=== PATIENT | male | born 1975 | race Two or more races ===

== ENCOUNTER 2020-09-03 10:32 | Emergency (ER) | payer OTHER, SELFPAY ==
[2020-09-03 10:44] VITALS: BP 143/81; PULSE 84; RESP 17; TEMP 36.8; O2SAT 98; BMI 31.0
--- NOTE | 2020-09-03 11:35 | ED.ALLEREA ---
HPI - Allergic Reaction General Chief complaint: Allergic Reaction Stated complaint: allergic Reaction Time Seen by Provider: 09/03/20 10:59 Source: patient Mode of arrival: ambulatory History of Present Illness HPI narrative: 45-year-old male a past medical history of sleep apnea, seasonal allergies, presenting to the ED complaining of allergic reaction to suspected Singulair and or Prednisone s/p taking yesterday. Admits was seen at [place] [facility] yesterday, prescribed these medications in about 4 hours later had diffuse pruritus/rash, and throat swelling. Denies SOB, wheezing, rash at present, other new exposures/known allergens MD complaint: allergic reaction and hives Related Data Home Medications Medication Instructions Recorded Confirmed varenicline 1 mg tablet 1 mg PO BID 09/02/20 09/02/20 Previous Rx's Medication Instructions Recorded montelukast 10 mg tablet 10 mg PO DAILY #30 tab 09/02/20 prednisone 10 mg tablet 10 mg PO .COMPLEX #45 tab 09/02/20 cetirizine [Zyrtec] 10 mg PO DAILY #14 tab 09/03/20 diphenhydramine HCl [Benadryl] 25 mg PO Q6H PRN #20 cap 09/03/20 Allergies Allergy/AdvReac Type Severity Reaction Status Date / Time No Known Allergies Allergy Unverified 12/14/19 17:13 seasonal allergies Allergy Unknown Itching Uncoded 09/03/20 10:47 Review of Systems Review of Systems: Constitutional: No Fever, No Chills, No Night Sweats, No Fatigue, No Malaise ENT/Mouth: No Nasal Congestion, No Sinus Pain, + Hoarseness, + sore throat, No Rhinorrhea, No Swallowing Difficulty Eyes: No Eye Pain, No Swelling, No Redness, No Vision Changes Cardiovascular: No Chest Pain, No SOB, No Edema Respiratory: No Cough, No Sputum, No Wheezing, No Dyspnea Musculoskeletal: No joint pain, No Myalgias, No Joint Swelling Skin: No Skin Lesions, + rash Neuro: No Weakness, No Numbness, No Headache Yes all other systems are reviewed and are negative [facility] Past Medical History Attestation statement: The following information was validated with the patient. Medical History (Updated 09/03/20 @ 12:55 by CHOCO Alanis) Sleep apnea Social History Social History Advance Directives: No Advance Directives Information Provided: No Physical Exam Vital Signs: Vital Signs: Last Vital Signs Temp 98.3 F 09/03/20 10:44 Pulse 84 09/03/20 10:44 Resp 17 09/03/20 10:44 BP 143/81 H 09/03/20 10:44 Pulse Ox 98 09/03/20 10:44 Body Mass Index 31.0 Const: General: cooperative and healthy appearing Orientation/consciousness: patient oriented x3 Limitations: no limitations HENMT: Other: Talking in complete sentences, in no respiratory distress Head: Yes normal to inspection and Yes atraumatic Ears: hearing grossly normal bilaterally General nose exam: Normal external nose present Face and sinus: Yes normal facial exam Mouth: Normal oral and palatal mucosa present Throat: Yes uvula midline, Yes abnormal tonsil (Bilateral tonsillar mild erythema/swelling), No peritonsillar mass, No uvula laterally displaced and No uvular edema Eyes: General: appearance normal, both eyes and all related structures EOM: EOMs intact bilaterally Neck: Neck: Yes normal visual inspection and Yes no meningeal signs Resp: Effort & Inspection: normal respiratory effort, no grunting, not labored and no stridor Auscultation: clear to auscultation bilaterally Cardio: Rate: regular rate Heart sounds: S1 normal heart sound present and S2 normal heart sound present GI: Inspection: Yes normal to inspection Skin: Other: No rash noted at this time Rashes: no rashes Wounds: no wounds Neuro: General: patient oriented x3 and no meningeal signs Gait exam (Neuro): Normal gait present Extrem: General: Yes normal to inspection Course Course Course Narrative: -1254-- Patient reports symptomatic improvement after medications given in the ED. Is talking in complete sentences, vital signs stable, oropharynx WNL. worrisome signs and symptoms and strict return precautions discussed with patient, he verbalized understanding and feels safe for discharge home. Will not take Singulair or prednisone. MDM - Allergic Reaction MDM Narrative Medical decision making narrative: 45-year-old male a past medical history of sleep apnea, seasonal allergies, presenting to the ED complaining of allergic reaction to suspected Singulair and or Prednisone s/p taking yesterday. On exam vital signs stable, NAD/nontoxic, talking in complete sentences, no respiratory distress, lungs CTA, bilateral mild tonsillar erythema/swelling, uvula midline without edema. Concern for allergic reaction vs strep pharyngitis vs viral syndrome. Plan: Decadron p.o., Benadryl, Pepcid, observe and reassess Lab Data Labs: Lab Results 09/03/20 Range/Units 11:19 S. pyogenes GrpA LJ Negative (Negative) Discharge Plan Discharge Clinical Impression: Allergic reaction Patient Disposition: Home, Self-Care Instructions: Allergies (ED) Additional Instructions: Do not take previously prescribed Singulair or prednisone Start taking a daily allergy medication like Zyrtec in the morning if not making drowsy. In addition Take Benadryl. 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
[2020-09-03] MEDS: Famotidine 20 MG TABLET PO (11:37)
[2020-09-03] MEDS: diphenhydrAMINE HCL 25 MG TABLET PO (11:37)
[2020-09-03] MEDS: dexAMETHasone 2 MG TABLET 10 MG PO (11:37)
[2020-09-03 11:40] LABS: Strep A Nucleic Acid Negative (Negative)
== END 2020-09-03 13:10 | disposition home or self-care (01) ==
PROVIDERS: Physician Assistant; Emergency Provider Emergency Medicine; PCP Internal Medicine
DX: T78.40XA Allergy, unspecified, initial encounter (principal); L50.9 Urticaria, unspecified; X58.XXXA Exposure to other specified factors, initial encounter; J02.9 Acute pharyngitis, unspecified
CPT/HCPCS: 36415; 87651; 99283; J8540; Q0163

== ENCOUNTER 2020-09-17 09:09 | Outpatient (REF) | payer OTHER, SELFPAY ==
[2020-09-17 10:18] LABS: MANUAL DIFF FLAG NO
[2020-09-17 10:40] LABS: Basophils Percent Auto 0.3 % (0-2); Eosinophils Absolute Auto 0.3 X10*3/uL (0.0-0.4); Eosinophils Percent Auto 3.3 % (0-4); Hematocrit 44.6 % (42-52); Hemoglobin 14.7 g/dl (14.0-18.0); Imm Gran Abs Auto 0.04 X10*3/uL (0.00-0.03); Imm Gran Pct Auto 0.5 % (0.0-0.4); Mean Corpuscular Hemoglobin 28.8 pg (27.0-33.0); Mean Corpuscular Volume 87.3 fL (80-98); Mean Platelet Volume 9.7 fL (9.4-12.4); Monocytes Absolute Auto 0.9 X10*3/uL (0.1-1.2); Monocytes Percent Auto 9.7 % (2-11); Neutrophils Absolute Auto 5.7 X10*3/uL (2.0-8.3); Neutrophils Percent Auto 64.2 % (45-73); Platelet Count 353 X10*3/uL (160-400); Red Blood Count 5.11 X10*6/uL (4.60-5.80); Red Cell Distribution Width 13.2 % (11.0-16.0); White Blood Count 8.9 X10*3/uL (4.8-10.8)
[2020-09-17 10:43] LABS: Alanine Aminotransferase 25 U/L (0-40); Albumin Level 4.2 g/dL (3.5-5.0); Alkaline Phosphatase 86 U/L (39-117); Anion Gap 11 (12-20); Aspartate Amino Transferase 23 U/L (5-37); Bilirubin Total 0.4 mg/dL (0.0-1.0); Blood Urea Nitrogen 20 mg/dL (9-16); Calcium 9.5 mg/dL (8.4-10.2); Carbon Dioxide 25 mmol/L (22-29); Chloride 107 mmol/L (96-108); Cholesterol 174 mg/dL; Estimated Glomerular Filt Rate > 60; Glucose Fasting 82 mg/dL (60-99); HDL Cholesterol 41 mg/dL; LDL Cholesterol Calculated 89 mg/dl; Potassium 4.8 mmol/L (3.3-5.1); Sodium 138 mmol/L (135-145); Total Protein 7.3 g/dL (6.5-8.0); Triglycerides 222 mg/dL
[2020-09-17 11:06] LABS: Thyroid Stimulating Hormone 0.49 uIU/mL (0.32-4.0)
[2020-09-22 13:02] LABS: Vitamin D 25-OH, D2 <4 ng/mL; Vitamin D 25-OH, D3 21 ng/mL; Vitamin D 25-OH, Total 21 ng/mL (30-100)
== END 2020-09-17 09:10 | disposition home or self-care (01) ==
LOC: HO.LAB 09:09
PROVIDERS: PCP Internal Medicine; Visit Provider Internal Medicine
DX: D64.9 Anemia, unspecified (principal); E66.9 Obesity, unspecified; E78.5 Hyperlipidemia, unspecified; E55.9 Vitamin D deficiency, unspecified
CPT/HCPCS: 36415; 80053; 80061; 82306; 84443; 85025

== ENCOUNTER → 2020-10-02 08:50 | Outpatient (BNVA) | payer OTHER, SELFPAY | PROVIDERS: Visit Provider Orthopaedic Surgery | DX: M65.312 Trigger thumb, left thumb (principal); M65.311 Trigger thumb, right thumb; F17.210 Nicotine dependence, cigarettes, uncomplicated; Z91.09 Other allergy status, other than to drugs and biological substances; Z88.8 Allergy status to other drugs, medicaments and biological substances | CPT/HCPCS: 20550; J1100 ==

== ENCOUNTER 2021-02-17 08:26 | Outpatient (REF) | payer OTHER, SELFPAY ==
--- NOTE | ~2021-02-17 | US_ITS ---
EXAMINATION: US ABDOMEN LIMITED CLINICAL INFORMATION: Ventral hernia without obstruction or gangrene. COMPARISON: None TECHNIQUE: Real-time imaging of the midline abdomen superior to the umbilicus as indicated by the patient. FINDINGS: There is supraumbilical midline ventral hernia containing fat and likely fluid. The rent measures approximately 0.5 x 0.7 cm. Fluid collection measures 1.3 x 0.7 x 0.20 cm. US/US abdomen limited IMPRESSION: Supraumbilical midline ventral hernia containing fat and fluid.
== END 2021-02-17 08:27 | disposition home or self-care (01) ==
LOC: HO.US 08:26
PROVIDERS: PCP Internal Medicine; Visit Provider Internal Medicine
DX: K43.9 Ventral hernia without obstruction or gangrene (principal)
CPT/HCPCS: 76705

== ENCOUNTER → 2021-03-26 15:07 | Outpatient (BNVA) | payer OTHER, SELFPAY | PROVIDERS: PCP Internal Medicine; Referring Provider Internal Medicine; Visit Provider Surgery ==

== ENCOUNTER 2021-04-25 10:03 | Day surgery (SDC) | payer OTHER, SELFPAY ==
--- NOTE | 2021-04-23 12:37 | P.CONAN_ITS ---
Documented by User: Sonam Brown NP 04/23/21 12:38 HPI - Anesthesia Eval Consult details Narrative: 46yo M for Supraumbilical Hernia Repair PMFSH Active Problems Active Problems: All Active Problems (Updated 02/17/21 @ 19:27 by Meghan Ackerman MD) Supraumbilical hernia (Acute) Hypovitaminosis D (Acute) Hypertriglyceridemia (Acute) Ventral hernia (Acute) Face lesion (Acute) Trigger finger of left thumb (Acute) Medication reaction (Acute) Trigger finger of right thumb (Acute) Sleep apnea (Acute) Obese (Acute) Seasonal allergies (Acute) Past Medical History Medical History Face lesion Hypertriglyceridemia Hypovitaminosis D Obese Sleep apnea Supraumbilical hernia Trigger finger of right thumb Ventral hernia Family History Family History Mother No problems noted. Father No problems noted. Surgical History Surgical History No pertinent past surgical history Social History Social History Housing: Apartment Alcohol intake: current Alcohol intake frequency: a few times a week Alcohol type: beer Patient Tobacco Use Status: Current everyday Tobacco user Tobacco use type: Cigarette Cigarettes Per Day: 10 Years Smoked: 20 Smoked in Last 30 Days: Yes e-Cigarette/Vaping Use: Never Used Patient Interested in Nicotine Replacement: No Patient Given Instructions on How to Stop Smoking: Yes Date Education Initiated: 04/25/21 Second Hand Smoke Exposure: Yes Use of substances other than those prescribed or required for medical reasons: Yes Substance Use Type Other:: once/ week to sleep Are you DNR?: No Advance Directives: No Advance Directives Information Provided: Yes service: No Current occupational status: employed 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 Current occupational exposures/hazards: No Meds Allergies Allergy/AdvReac Type Severity Reaction Status Date / Time montelukast Allergy Severe Rash Verified 04/25/21 11:31 prednisone Allergy Severe Rash Verified 04/25/21 11:32 seasonal allergies Allergy Severe Itching Uncoded 04/21/21 11:01 Exam Exam Date and Time: April 23, 2021 1237 Pertinent Lab Results Pertinent Lab Results: Laboratory Tests 09/17/20 09/17/20 09:30 09:30 WBC 8.9 Hgb 14.7 Hct 44.6 Plt Count 353 Sodium 138 Potassium 4.8 Chloride 107 Carbon Dioxide 25 BUN 20 H Creatinine 1.14 Assessment and Plan Assessment Anesthesia Assessment: Chart Reviewed Documented by User: Jeanine Cobb MD 04/25/21 11:37 PMFSH Past Medical History Medical History Face lesion Hypertriglyceridemia Hypovitaminosis D Obese Sleep apnea Supraumbilical hernia Trigger finger of right thumb Ventral hernia Family History Family History Mother No problems noted. Father No problems noted. Family history of problems with anesthesia: No Surgical History Surgical History No pertinent past surgical history History of Problems with Anesthesia: No Social History Social History Housing: Apartment Alcohol intake: current Alcohol intake frequency: a few times a week Alcohol type: beer Patient Tobacco Use Status: Current everyday Tobacco user Tobacco use type: Cigarette Cigarettes Per Day: 10 Years Smoked: 20 Smoked in Last 30 Days: Yes e-Cigarette/Vaping Use: Never Used Patient Interested in Nicotine Replacement: No Patient Given Instructions on How to Stop Smoking: Yes Date Education Initiated: 04/25/21 Second Hand Smoke Exposure: Yes Use of substances other than those prescribed or required for medical reasons: Yes Substance Use Type Other:: once/ week to sleep Are you DNR?: No Advance Directives: No Advance Directives Information Provided: Yes service: No Current occupational status: employed Current occupation: rt [employer] business Current occupational exposures/hazards: No Meds Allergies Allergy/AdvReac Type Severity Reaction Status Date / Time montelukast Allergy Severe Rash Verified 04/25/21 11:31 prednisone Allergy Severe Rash Verified 04/25/21 11:32 seasonal allergies Allergy Severe Itching Uncoded 04/21/21 11:01 Exam Airway Mallampati Class: II TM Dist: >3cm Neck ROM: Full Heart: rrr Lungs: cta Assessment and Plan Assessment Anesthesia Assessment: Anesthesia Plan Discussed and Chart Reviewed Final Anesthetic Review Family History of Problems with Anesthesia: No History of Problems with Anesthesia: No NPO: Yes ASA Class: III Final Preanesthetic Review: No Changes in Pt Med Stat, Meds/Allgs Chart Reviewed and Consent Obtained/Reviewed Patient Risk: Intermediate Procedure Risk: Intermediate Anesthetic Plan Anesthetic Plan: GA Disposition: Standard PACU
[2021-04-25] VITALS (7 sets, daily range): BP systolic 101–123; BP diastolic 69–82; PULSE 74–83; RESP 13–20; TEMP 36.7–37.1; O2SAT 94–99; BMI 30.4
[2021-04-25] MEDS: Lactated Ringers 1,000 ML 100 ML IVCONT (11:28)
--- NOTE | 2021-04-25 11:33 | MHC.SHP ---
Pre-Procedural Eval Section A Date of Service: 04/25/21 The patient is an INPATIENT: No Changes since office visit: No Cold of Flu in the past 2 weeks, No New Medical Problems, No Changes in Medication and No Patient answered all questions The History & Physical has been completed within 30 days and I have reviewed it.: Yes Section B Chief Complaint: Supraumbilical hernia Allergies: Allergies Allergy/AdvReac Type Severity Reaction Status Date / Time montelukast Allergy Severe Rash Verified 04/25/21 11:31 prednisone Allergy Severe Rash Verified 04/25/21 11:32 seasonal allergies Allergy Severe Itching Uncoded 04/21/21 11:01 Plan I have reviewed the history and physical and performed a pertinent physical examination on my patient. No changes have occurred unless specified.
--- NOTE | 2021-04-25 12:20 | W.PM.OPN ---
Operative Note Operative Note Date of Service: 04/25/21 Narrative: Preop diagnosis: Supraumbilical hernia Postop diagnosis: Supraumbilical hernia, about 8 mm in diameter, with large amounts of omental fat Procedure: Repair of a supraumbilical hernia, resection of herniated omental fat Surgeon: Kaleb Rowland MD 1st operations administrative assistant: CHOCO Matos The patient is a 46-year-old male supraumbilical hernia. He was seen in the office and he wanted to proceed with repair. He understood the technique of repair with possible mesh placement. He was aware of the risks, benefits, and alternatives . He was brought to the operating room placed supine on the table under general anesthesia via laryngeal mask airway. The abdomen is prepped and draped in the usual sterile fashion. A surgical time-out was done. The patient received cefazolin 2 g IV preoperatively I marked the blind line of incision the hernia was palpable. I infiltrated this area with lidocaine 1%. I made an incision on the skin overlying this hernia using blade 15. This was carried down through the full-thickness of the skin and subcutaneous fat. The patient was morbidly so as we had to go through a thick amount of subcutaneous fat before we able to visualize the hernia. The hernia was seen and contained omental fat. There was no bowel loop within the hernia. sharply dissected this off of the rest of subcutaneous layer down to the fascial defect. I was able to eventually define the defect. The fascialdefect was about 8 mm in diameter . There was note of large amounts omental fat and we could not reduce this so we had to resect part of this omental fat. I applied a Alexia clamp across the did omental fat and the omental fat was divided between clamps. I ligated the stump omental fat with Dexon 2-0 tie. By being part of this omental fat, as able to completely reduce the hernia to the very small defect. Again the defect was only about 8 mm in diameter. I therefore did not use a mesh. I was this fascial defect with a [id number] Maxon 1 stitch. I made sure that there were no adherent fat or bowel surrounding the fascial defect prior to application of this stitch. I then irrigated. I reapposed the thick subcutaneous fat with Dexon 3-0 sutures. Skin closure was achieved with Dexon 4-0 subcuticular running stitch The area was infiltrated with Marcaine 0.5% for postop MOSES. Steri-Strips and dressings were applied. The procedure was completed. The patient tolerated the procedure well. There were no complication noted. Initial and finalcounts of sponges and instruments were correct. Estimated blood loss was less than 3 cc.. The patient was extubated without difficulty and transferred to the recovery room with stable vital signs.
[2021-04-25] MEDS: oxyCODONE HCl Immed Release 5 MG TABLET 10 MG PO (13:25)
== END 2021-04-25 14:30 | disposition home or self-care (01) ==
PROVIDERS: PCP Internal Medicine; Visit Provider Surgery
PROC: (CPT 49560; principal; 2021-04-25 12:10)
DX: K43.9 Ventral hernia without obstruction or gangrene (principal); E55.9 Vitamin D deficiency, unspecified; E78.1 Pure hyperglyceridemia; G47.33 Obstructive sleep apnea (adult) (pediatric); E66.9 Obesity, unspecified; Z68.32 Body mass index [BMI] 32.0-32.9, adult; Z79.899 Other long term (current) drug therapy; Z88.8 Allergy status to other drugs, medicaments and biological substances; F17.210 Nicotine dependence, cigarettes, uncomplicated
CPT/HCPCS: 49560; 88302; J0690; J2250; J2370; J2405; J3010

== ENCOUNTER → 2021-11-11 09:00 | Outpatient (REF) | payer OTHER, SELFPAY | LOC: HO.SL 09:00 | PROVIDERS: PCP Internal Medicine; Visit Provider Internal Medicine | DX: G47.33 Obstructive sleep apnea (adult) (pediatric) (principal); R40.0 Somnolence | CPT/HCPCS: 95806 ==

== ENCOUNTER 2022-03-11 20:51 | Emergency (ER) | payer OTHER, SELFPAY ==
--- NOTE | ~2022-03-11 | XR_ITS ---
EXAMINATION: XR CHEST CLINICAL INFORMATION: Cough COMPARISON: None TECHNIQUE: Frontal view of the chest was obtained. FINDINGS: There is an area of consolidation present in the right lower lung measuring about 6.8 x 7.2 cm. A tiny right pleural effusion is present. The heart size is normal in size. The left lung is clear. XR/XR chest 1V IMPRESSION: Right lower lobe pneumonia with small right pleural effusion. Repeat study after a course of treatment is recommended to ensure complete clearing and rule out underlying malignancy.
[2022-03-11 20:57] VITALS: BP 133/84; PULSE 112; RESP 20; TEMP 38.2; O2SAT 96; BMI 32.8
[2022-03-11 21:52] LABS: Influenza A PCR NEGATIVE (Negative); Influenza B PCR NEGATIVE (Negative); Resp Syncy Virus RNA Qual PCR NEGATIVE (Negative); SARS COV2 PCR INHOUSE NEGATIVE (Negative)
--- NOTE | 2022-03-11 22:50 | ED_ITS ---
HPI - General Adult General Chief complaint: General Medical Stated complaint: Body aches/ cough/ multiple complaints Time Seen by Provider: 03/11/22 22:50 Source: patient Mode of arrival: ambulatory Limitations: no limitations History of Present Illness HPI narrative: Patient with History of sleep apnea otherwise healthy been feeling sick for last 3 days with cough headache chills fever body aches knee pain back pain no history of IV drug use no other family member sick patient coughing mostly dry Related Data Previous Rx's Medication Instructions Recorded cholecalciferol (vitamin D3) 25 25 mcg PO DAILY 90 days #90 caps 01/01/21 mcg (1,000 unit) capsule loratadine 10 mg tablet 10 mg PO DAILY 90 days #90 tabs 08/11/21 omeprazole 20 mg capsule,delayed 20 mg PO DAILY 90 days #90 caps 09/17/21 release azithromycin 500 mg tablet 500 mg PO DAILY 3 days #3 tabs 03/12/22 (Zithromax TRI-KEMAR) benzonatate 200 mg capsule 200 mg PO TID PRN cough #30 caps 03/12/22 cefuroxime axetil 500 mg tablet 500 mg PO BID 10 days #20 tabs 03/12/22 ibuprofen 600 mg tablet 600 mg PO Q6H PRN fever or pain 03/12/22 #30 tabs Allergies Allergy/AdvReac Type Severity Reaction Status Date / Time montelukast Allergy Severe Rash Verified 01/14/22 09:59 prednisone Allergy Severe Rash Verified 01/14/22 09:59 seasonal allergies Allergy Severe Itching Uncoded 01/14/22 09:59 Review of Systems Review of Systems: Yes all other systems are reviewed and are negative PMFSH Past Medical History Medical History Face lesion Hypertriglyceridemia Hypovitaminosis D Obese NORIS (obstructive sleep apnea) Retrognathia Sleep apnea Supraumbilical hernia Trigger finger of right thumb Ventral hernia Surgical History H/O umbilical hernia repair Family History Family History Mother No problems noted. Father No problems noted. 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 Oriented X3. No acute distress. Eyes: No pallor or icterus ENT: Pharynx normal. Oral Mucosa moist Neck: Normal inspection. Neck supple. CVS: Normal heart rate and rhythm. Pulses normal. Respiratory: No respiratory distress. Equal air entry bilateral, no wheezing/rales/rhonchi Abdomen: Soft and nontender. Bowel sounds are present, no mass palpable, no CVA tenderness Skin: Skin warm and dry. Normal skin color. Normal skin turgor. Extremities: No lower extremity edema. No calf tenderness Neuro: Oriented X 3. No motor deficit. No sensory deficit.No cerebellar signs , cranial nerves II-XII intact Medications Administered Discontinued Medications Generic Name Dose Route Start Last Admin Trade Name Freq PRN Reason Stop Dose Admin Azithromycin 500 mg 03/12/22 00:23 03/12/22 00:37 Azithromycin 500 Mg Tablet PO 03/12/22 00:24 500 mg ONCE ONE Administration Sodium Chloride 1,000 mls @ 999 mls/hr 03/11/22 22:58 03/11/22 23:42 Ns IV 03/11/22 23:58 999 mls/hr .Q1H1M ONE Administration Ceftriaxone Sodium 1 gm/ 50 mls @ 100 mls/hr 03/12/22 00:23 03/12/22 00:37 Sodium Chloride IV 03/12/22 00:52 100 mls/hr ONCE ONE Administration Ketorolac Tromethamine 30 mg 03/11/22 22:59 03/11/22 23:41 Ketorolac Tromethamine 30 Mg/Ml Vial IVPUSH 03/11/22 23:00 30 mg ONCE ONE Administration Medical Decision Making Medical Decision Making [facility] Narrative: Patient with community-acquired pneumonia right lower lobe normal WBC count and lactic acid. Will give him IV Rocephin and Zithromax treat as outpatient Lab Data [facility] Lab Attestation statement: I reviewed the patient's lab results. Result Diagrams: 03/11/22 23:46 03/11/22 23:46 Labs: Lab Results 03/11/22 03/11/22 03/11/22 Range/Units 21:04 23:46 23:46 WBC 8.3 (4.8-10.8) X10*3/uL RBC 5.21 (4.60-5.80) X10*6/uL Hgb 14.9 (14.0-18.0) g/dl Hct 44.0 (42.0-52.0) % MCV 84.5 (80.0-98.0) fL MCH 28.6 (27.0-33.0) pg MCHC 33.9 (31.0-36.0) g/dl RDW 12.8 (11.0-16.0) % Plt Count 293 (160-400) X10*3/uL MPV 9.2 L (9.4-12.4) fL Immature Gran % (Auto) 0.2 (0.0-0.4) % Neut % (Auto) 68.1 (45-73) % Lymph % (Auto) 16.4 L (20-40) % Atkinson % (Auto) 14.3 H (2-11) % Eos % (Auto) 0.6 (0-4) % Baso % (Auto) 0.4 (0-2) % Lymph # (Auto) 1.4 (1.2-4.9) X10*3/uL Atkinson # (Auto) 1.2 (0.1-1.2) X10*3/uL Eos # (Auto) 0.1 (0.0-0.4) X10*3/uL Baso # (Auto) 0.0 (0.0-0.2) X10*3/uL Abs Immat Gran (auto) 0.02 (0.00-0.03) X10*3/uL Absolute Neuts (auto) 5.7 (2.0-8.3) x10*3/uL Absolute Nucleated RBC 0.000 (0.0-0.012) X10*3/uL Nucleated RBC % (auto) 0.0 (0.0-0.2) /100WBC Sodium 134 L (135-145) mmol/L Potassium 4.5 (3.3-5.1) mmol/L Chloride 103 (96-108) mmol/L Carbon Dioxide 21 L (22-29) mmol/L Anion Gap 15 (12-20) BUN 18 H (9-16) mg/dL Creatinine 0.99 (0.5-1.4) mg/dL Estim Creat Clear Calc 102.5 Estimated GFR > 60 Random Glucose 117 H (60-115) mg/dL Lactic Acid (0.5-2.0) mmol/L Calcium 9.1 (8.4-10.2) mg/dL Total Bilirubin 0.3 (0.0-1.0) mg/dL AST 32 (5-37) U/L ALT 46 H (0-40) U/L Alkaline Phosphatase 65 D (39-117) U/L Total Protein 7.7 (6.5-8.0) g/dL Albumin 4.1 (3.5-5.0) g/dL Urine Color Urine Appearance Urine pH (5.0-9.0) Ur Specific Solsberry (1.005-1.025) Urine Protein (Neg-Trace) mg/dL Urine Glucose (UA) (Negative) mg/dL Urine Ketones (Negative) mg/dL Urine Blood (Negative) Urine Nitrite (Negative) Ur Leukocyte Esterase (Negative) Urine RBC (0-2) /HPF Urine WBC (0-5) /HPF Ur Squamous Epith Cells (0-2) /HPF Urine Bacteria (None Seen) Hyaline Casts (0-2) /LPF Influenza Type A (PCR) NEGATIVE (Negative) Influenza Type B (PCR) NEGATIVE (Negative) RSV RNA Qual (PCR) NEGATIVE (Negative) SARS-CoV-2 RNA (RT-PCR) NEGATIVE (Negative) 03/11/22 03/11/22 Range/Units 23:46 23:46 WBC (4.8-10.8) X10*3/uL RBC (4.60-5.80) X10*6/uL Hgb (14.0-18.0) g/dl Hct (42.0-52.0) % MCV (80.0-98.0) fL MCH (27.0-33.0) pg MCHC (31.0-36.0) g/dl RDW (11.0-16.0) % Plt Count (160-400) X10*3/uL MPV (9.4-12.4) fL Immature Gran % (Auto) (0.0-0.4) % Neut % (Auto) (45-73) % Lymph % (Auto) (20-40) % Atkinson % (Auto) (2-11) % Eos % (Auto) (0-4) % Baso % (Auto) (0-2) % Lymph # (Auto) (1.2-4.9) X10*3/uL Atkinson # (Auto) (0.1-1.2) X10*3/uL Eos # (Auto) (0.0-0.4) X10*3/uL Baso # (Auto) (0.0-0.2) X10*3/uL Abs Immat Gran (auto) (0.00-0.03) X10*3/uL Absolute Neuts (auto) (2.0-8.3) x10*3/uL Absolute Nucleated RBC (0.0-0.012) X10*3/uL Nucleated RBC % (auto) (0.0-0.2) /100WBC Sodium (135-145) mmol/L Potassium (3.3-5.1) mmol/L Chloride (96-108) mmol/L Carbon Dioxide (22-29) mmol/L Anion Gap (12-20) BUN (9-16) mg/dL Creatinine (0.5-1.4) mg/dL Estim Creat Clear Calc Estimated GFR Random Glucose (60-115) mg/dL Lactic Acid 0.7 (0.5-2.0) mmol/L Calcium (8.4-10.2) mg/dL Total Bilirubin (0.0-1.0) mg/dL AST (5-37) U/L ALT (0-40) U/L Alkaline Phosphatase (39-117) U/L Total Protein (6.5-8.0) g/dL Albumin (3.5-5.0) g/dL Urine Color Yellow Urine Appearance Clear Urine pH 5.5 (5.0-9.0) Ur Specific Solsberry >= 1.030 H (1.005-1.025) Urine Protein 30 (1+) H (Neg-Trace) mg/dL Urine Glucose (UA) Negative (Negative) mg/dL Urine Ketones Trace (Negative) mg/dL Urine Blood Negative (Negative) Urine Nitrite Negative (Negative) Ur Leukocyte Esterase Negative (Negative) Urine RBC 0-2 (0-2) /HPF Urine WBC 0-5 (0-5) /HPF Ur Squamous Epith Cells 3-5 (0-2) /HPF Urine Bacteria None Seen (None Seen) Hyaline Casts 0-2 (0-2) /LPF Influenza Type A (PCR) (Negative) Influenza Type B (PCR) (Negative) RSV RNA Qual (PCR) (Negative) SARS-CoV-2 RNA (RT-PCR) (Negative) Discharge Plan Discharge Clinical Impression: Community acquired pneumonia Patient Disposition: Home, Self-Care Instructions: Community Acquired Pneumonia (ED) Additional Instructions: Take antibiotics as prescribed and follow with PCP Tylenol/Motrin for fever/pain Report to the ER if increased shortness of breath /worsening of pain high fever Prescriptions: New cefuroxime axetil 500 mg tablet 500 mg PO BID 10 Days Qty: 20 0RF azithromycin [Zithromax TRI-KEMAR] 500 mg tablet 500 mg PO DAILY 3 Days Qty: 3 0RF benzonatate 200 mg capsule 200 mg PO TID PRN (Reason: cough) Qty: 30 0RF ibuprofen 600 mg tablet 600 mg PO Q6H PRN (Reason: fever or pain) Qty: 30 0RF No Action loratadine 10 mg tablet 10 mg PO DAILY 90 Days Qty: 90 1RF omeprazole 20 mg capsule,delayed release(DR/EC) 20 mg PO DAILY 90 Days Qty: 90 1RF cholecalciferol (vitamin D3) 25 mcg (1,000 unit) capsule 25 mcg PO DAILY 90 Days Qty: 90 2RF Stand Alone Forms: Work/School Release
[2022-03-11] MEDS: Ketorolac Tromethamine 30 MG/ML VIAL IVPUSH (23:41)
[2022-03-11] MEDS: 0.9 % Sodium Chloride 1,000 ML 999 ML IV (23:42)
[2022-03-11 23:45] VITALS: BP 116/74; PULSE 91; RESP 20; TEMP 37.7; O2SAT 98
[2022-03-11 23:53] LABS: Basophils Percent Auto 0.4 % (0-2); Eosinophils Absolute Auto 0.1 X10*3/uL (0.0-0.4); Eosinophils Percent Auto 0.6 % (0-4); Hemoglobin 14.9 g/dl (14.0-18.0); Imm Gran Abs Auto 0.02 X10*3/uL (0.00-0.03); Imm Gran Pct Auto 0.2 % (0.0-0.4); Lymphocytes Absolute Auto 1.4 X10*3/uL (1.2-4.9); Lymphocytes Percent Auto 16.4 % (20-40); MANUAL DIFF FLAG NO; Mean Corpuscular HGB Conc 33.9 g/dl (31.0-36.0); Mean Corpuscular Hemoglobin 28.6 pg (27.0-33.0); Mean Corpuscular Volume 84.5 fL (80.0-98.0); Mean Platelet Volume 9.2 fL (9.4-12.4); Monocytes Absolute Auto 1.2 X10*3/uL (0.1-1.2); Monocytes Percent Auto 14.3 % (2-11); Neutrophils Absolute Auto 5.7 x10*3/uL (2.0-8.3); Neutrophils Percent Auto 68.1 % (45-73); Platelet Count 293 X10*3/uL (160-400); Red Blood Count 5.21 X10*6/uL (4.60-5.80); Red Cell Distribution Width 12.8 % (11.0-16.0); White Blood Count 8.3 X10*3/uL (4.8-10.8)
[2022-03-11 23:55] LABS: Appearance Urine Clear; Color Urine Yellow; Glucose Urine UA Negative (Negative); Leukocyte Esterase Urine Negative (Negative); Nitrite Urine Negative (Negative); PH 5.5 (5.0-9.0); Specific Gravity - Urine >= 1.030 (1.005-1.025); UMIC TRIGGER UACC YES; Urine Blood Negative (Negative); Urine Ketones Trace mg/dL (Negative); Urine Protein 30 (1+) mg/dL (Neg-Trace)
[2022-03-11 23:57] LABS: Bacteria Urine None Seen (None Seen); Hyaline Casts Urine 0-2 /LPF (0-2); RBC Urine 0-2 /HPF (0-2); WBC Urine 0-5 /HPF (0-5)
[2022-03-12 00:07] LABS: Lactic Acid 0.7 mmol/L (0.5-2.0)
[2022-03-12 00:13] LABS: Alanine Aminotransferase 46 U/L (0-40); Albumin Level 4.1 g/dL (3.5-5.0); Alkaline Phosphatase 65 U/L (39-117); Anion Gap 15 (12-20); Aspartate Amino Transferase 32 U/L (5-37); Blood Urea Nitrogen 18 mg/dL (9-16); Calcium 9.1 mg/dL (8.4-10.2); Carbon Dioxide 21 mmol/L (22-29); Chloride 103 mmol/L (96-108); Creatinine Clr Calc Pharmacy 102.5; Estimated Glomerular Filt Rate > 60; Glucose Random 117 mg/dL (60-115); Potassium 4.5 mmol/L (3.3-5.1); Sodium 134 mmol/L (135-145); Total Protein 7.7 g/dL (6.5-8.0)
[2022-03-12 00:28] LABS: Bilirubin Total 0.3 mg/dL (0.0-1.0)
[2022-03-12] MEDS: Azithromycin 500 MG TABLET PO (00:37)
[2022-03-12] MEDS: cefTRIAXone sodium 1 GM in 0.9 % Sodium Chloride 50 ML IV (00:37)
[2022-03-12 01:41] VITALS: BP 118/71; PULSE 84; RESP 20; TEMP 37; O2SAT 97
== END 2022-03-12 01:34 | disposition home or self-care (01) ==
PROVIDERS: Emergency Provider Internal Medicine; PCP Internal Medicine
DX: J18.8 Other pneumonia, unspecified organism (principal); Z20.822 Contact with and (suspected) exposure to COVID-19; R50.9 Fever, unspecified; F17.210 Nicotine dependence, cigarettes, uncomplicated
CPT/HCPCS: 0241U; 36415; 71045; 80053; 81001; 83605; 85025; 87040; 96374; 96375; 99283; 99284; J0696; J1885

== ENCOUNTER 2022-11-25 13:02 | Outpatient (AMB) | payer OTHER, SELFPAY ==
--- NOTE | 2022-11-25 13:12 | A.OFFPC_ITS ---
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 Accompanied by: Self / Same As Patient Allergies montelukast Allergy (Severe, Verified 11/25/22 13:32) Rash prednisone Allergy (Severe, Verified 11/25/22 13:32) Rash seasonal allergies Allergy (Severe, Uncoded 11/25/22 13:32) Itching Medication List - Last Reconciled 11/25/22 by Meghan Ackerman MD omeprazole 20 mg PO DAILY Tobacco use date assessed: 11/25/22 Dental Screening Dental Screen Date: 11/25/22 Did you have a dental visit in the last 12 months?: Yes Did you have a dental problem in the last 6 months where you did not have access to dental care?: No Was dental information given to patient?: Patient has dentist HPI HPI Comments History of Present Illness Details This is a 47-year-old male with GERD that comes for follow-up on GERD which has been stable with PPIs. Has no family history of colon cancer and needs a Cologuard for colon cancer screening. He is a smoker and would like to restart Chantix. Advised that can cause suicidal ideation and if that happens h e has to discontinue Chantix. No chest pain or shortness of breath. [facility] Medical History Face lesion Hypertriglyceridemia Hypovitaminosis D Obese NORIS (obstructive sleep apnea) Retrognathia Sleep apnea Supraumbilical hernia Trigger finger of right thumb Ventral hernia Surgical History H/O umbilical hernia repair Family History Mother No problems noted. Father No problems noted. 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 Andrea Alba, Debora Lamb, Berhane Connor and colleagues, with an educational nica from [employer]. Review of Systems Const All systems reviewed & are unremarkable except as noted in HPI and below Eyes Reports no additional complaints, Denies change in vision and Denies other visual disturbances Card Denies chest pain at rest, Denies chest pain with activity, Denies edema, Denies irregular heart rhythm, Denies claudication, Denies dyspnea, Denies dyspnea on exertion, Denies orthopnea, Denies paroxysmal nocturnal dyspnea and Denies slow heart rate Resp Denies cough, Denies dyspnea and Denies dyspnea on exertion GI Denies abdominal pain, Denies change in bowel habits, Denies excessive flatus, Denies nausea and Denies vomiting Denies urinary hesitancy, Denies urinary incontinence and Denies urinary urgency Musc Denies abnormal gait, Denies atrophy, Denies deformity and Denies limited range of motion Skin/Breast Denies bleeding lesions, Denies changing lesions and Denies rash Neuro Denies abnormal gait and Denies lack of coordination Physical exam (Primary Care) Vital Signs: Last Vital Signs BP 130/80 11/25/22 13:13 BMI result Body Mass Index 32.9 Tobacco/Smoking Status: Tobacco use Status Tobacco use date assessed 11/25/22 11/25/22 13:17 Patient Tobacco Use Status Current everyday Tobacco 11/25/22 13:17 Tobacco use type Cigarette 11/25/22 13:17 e-Cigarette/Vaping Use Never Used 11/25/22 13:17 Thrive Assessment: Date of Thrive Assessment Date Thrive assessed 09/17/21 11/25/22 13:17 Eyes General: appearance normal, both eyes and all related structures Eyelids: Yes eyelids normal Conjunctivae: conjunctivae normal Neck Neck: Yes normal visual inspection and Yes supple Resp Effort & Inspection: normal respiratory effort Auscultation: clear to auscultation bilaterally Cardio Jugular venous distension: no JVD Rate: regular rate Rhythm: regular rhythm Heart sounds: S1 normal heart sound present and S2 normal heart sound present Extrem General: Yes full ROM Assessment and Plan Assessment & Plan (1) GERD (gastroesophageal reflux disease): Code(s): K21.9 - Gastro-esophageal reflux disease without esophagitis Plan: Continue PPIs as needed (2) Smoking: Code(s): F17.200 - Nicotine dependence, unspecified, uncomplicated Plan: Start Chantix. Orders: Referrals Cologuard Test Z12.11 - Encounter for screening for malignant neoplasm of colon, Z12.12 - Encounter for screening for malignant neoplasm of rectum Medications: New varenicline 0.5 mg PO BID 60 tabs 0RF 30 days F17.200 - Nicotine dependence, unspecified, uncomplicated Coding Level of Care Code Est Pt Level 3 (63091) Diagnoses GERD (gastroesophageal reflux disease) K21.9 Smoking F17.200 Time Spent (min) 19
[2022-11-25 13:13] VITALS: BP 130/80; BMI 32.9
== END 2022-11-25 13:41 | disposition home or self-care (01) ==
PROVIDERS: PCP Internal Medicine; Visit Provider Internal Medicine
DX: K21.9 Gastro-esophageal reflux disease without esophagitis (principal); F17.200 Nicotine dependence, unspecified, uncomplicated
CPT/HCPCS: 99213

== ENCOUNTER 2023-06-01 07:17 | Outpatient (AMB) | payer OTHER, SELFPAY ==
--- NOTE | 2023-06-01 07:30 | A.OFFPC_ITS ---
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: No Was dental information given to patient?: Patient has dentist HPI HPI Comments History of Present Illness Details This is a 48-year-old male that comes for his physical exam. He has a smoker and has cut down after starting Chantix. Last Cologuard was 2022 which was negative and next Cologuard should be 2025. Denies any chest pain or shortness of breath. Compliance with CPAP machine and feels markedly improved. [facility] Medical History NORIS (obstructive sleep apnea) Retrognathia Supraumbilical hernia Hypovitaminosis D Hypertriglyceridemia Ventral hernia Face lesion Trigger finger of right thumb Obese Sleep apnea Surgical History H/O umbilical hernia repair Family History Mother No problems noted. Father No problems noted. 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 1. Little interest or pleasure in doing things: not at all 2. Feeling down, depressed, or hopeless: not at all 3. Trouble falling or staying asleep, or sleeping too much: not at all 4. Feeling tired or having little energy: not at all 5. Poor appetite or overeating: not at all 6. Feeling bad about yourself - or that you are a failure or have let yourself or your family down: not at all 7. Trouble concentrating on things, such as reading the newspaper or watching television: not at all 8. Moving or speaking so slowly that other people could have noticed. Or the opposite - being so fidgety or restless that you have been moving around a lot more than usual: not at all 9. Thoughts that you would be better off or of hurting yourself in some way: not at all Total score: 0 Depression Screening Interpretation: Negative Depression Screening Done: Yes 43060 - PHQ-9 Billing: Yes Source: Developed by Drs. Andrea Alba, Debora Lamb, Berhane Connor and colleagues, with an educational nica from [employer]. Thrive Questionnaire Date Thrive assessed: 06/01/23 I am a: Patient What is your living situation today?: I have a steady place to live Within the past 12 months, did the food you bought not last and you didn't have the money to get more?: Never true Within the past 12 months, did you worry whether your food would run out before you got money to buy more?: Never true Do you have trouble paying for medicines?: No Do you have trouble getting transportation to medical appointments?: No Do you have trouble paying your heating and electricity bill?: No Do you have trouble taking care of your child, family member or friend?: No Do you have trouble with day-to-day activities such as bathing, preparing meals, shopping, managing finances, etc.?: No Are you currently unemployed and looking for a job?: No Are you interested in more education?: No Please select the resources that you would like help with: None Currently or been in a relationship where the following occur: no concerns reported THRIVE Score: 0 AUDIT C Alcohol Use Questionnaire (AUDIT-C) 1. How often do you have a drink containing alcohol?: 2-4 times a month 2. How many drinks containing alcohol do you have on a typical day when you are drinking?: 3 or 4 3. How often do you have six or more drinks on one occasion?: Never Total Score: 3 Score Reviewed/Action Taken: No ONEIL-7 AMB Questionnaire ONEIL-7 Date ONEIL - 7 assessed: 06/01/23 Feeling nervous, anxious, or on edge: 0 = Not at all Not being able to stop or control worryin = Not at all Worrying too much about different things: 0 = Not at all Trouble relaxin = Not at all Being so restless that it is hard to sit still: 0 = Not at all Becoming easily annoyed or irritable: 0 = Not at all Feeling afraid as if something awful might happen: 0 = Not at all Total ONEIL-7 score (0-4 normal; 5-9 mild; 10-14 moderate; 15-21 severe): 0 Source: Developed by Drs. Andrea Alba, Debora Lamb, Berhane Connor and colleagues, with an educational nica from [employer]. ONEIL-7 Assessment Billing ONEIL-7 Assessment Tool: ONEIL-7 Assessment 89213 Review of Systems Const All systems reviewed & are unremarkable except as noted in HPI and below Eyes Reports no additional complaints, Denies change in vision and Denies other visual disturbances Card Denies chest pain at rest, Denies chest pain with activity, Denies edema, Denies irregular heart rhythm, Denies claudication, Denies dyspnea, Denies dyspnea on exertion, Denies orthopnea, Denies paroxysmal nocturnal dyspnea and Denies slow heart rate Resp Denies cough, Denies dyspnea and Denies dyspnea on exertion GI Denies abdominal pain, Denies change in bowel habits, Denies excessive flatus, Denies nausea and Denies vomiting Denies urinary hesitancy, Denies urinary incontinence and Denies urinary urgency Musc Denies abnormal gait, Denies atrophy, Denies deformity and Denies limited range of motion Skin/Breast Denies bleeding lesions, Denies changing lesions and Denies rash Neuro Denies abnormal gait, Denies behavioral changes, Denies confusion and Denies lack of coordination Psych Denies behavioral changes and Denies confusion Physical exam (Primary Care) Vital Signs: Last Vital Signs BP 114/78 06/01/23 07:31 BMI result Body Mass Index 33.2 Tobacco/Smoking Status: Tobacco use Status Tobacco use date assessed 06/01/23 06/01/23 07:38 Patient Tobacco Use Status Current everyday Tobacco 06/01/23 07:38 Tobacco use type Cigarette 06/01/23 07:38 e-Cigarette/Vaping Use Never Used 06/01/23 07:38 PHQ-9: PHQ-9 Score PHQ-9: Total score 0 06/01/23 07:38 Depression Screening Interpretation: Negative Thrive Assessment: Date of Thrive Assessment Date Thrive assessed 06/01/23 06/01/23 07:38 Currently or been in a relationship where the following occur: no concerns reported Const General: No confusion Orientation/consciousness: patient oriented x3 and No confusion HENMT Head: Yes normal to inspection, Yes normocephalic and Yes atraumatic Ears: external ears normal Eyes General: appearance normal, both eyes and all related structures Eyelids: Yes eyelids normal Conjunctivae: conjunctivae normal Neck Neck: Yes normal visual inspection and Yes supple Resp Effort & Inspection: normal respiratory effort Auscultation: clear to auscultation bilaterally Cardio Jugular venous distension: no JVD Rate: regular rate Rhythm: regular rhythm Heart sounds: S1 normal heart sound present and S2 normal heart sound present GI Inspection: Yes normal to inspection Palpation (GI): Soft to palpation and nontender Auscultation: normal bowel sounds Skin General skin exam: no rashes or lesions noted Neuro General: patient oriented x3, no focal motor deficits and No confusion Extrem General: Yes full ROM Psych Appearance: grossly normal Assessment and Plan Assessment & Plan (1) Physical exam: Code(s): Z00.00 - Encounter for general adult medical examination without abnormal findings Plan: Repeat in a year. Orders: Orders Lipid Panel Today Z00.00 - Encounter for general adult medical examination without abnormal findings Comprehensive [place]. Panel Fast Today Z00.00 - Encounter for general adult medical examination without abnormal findings Vitamin D 25-OH Total Today E55.9 - Vitamin D deficiency, unspecified Medications: New cetirizine 10 mg PO DAILY 90 days PRN 90 tabs 0RF allergy symptoms Coding Level of Care Code Est Pt Prev Care 40-64y(37352) Diagnoses Physical exam Z00.00 Additional Codes ONEIL-7 Assessment Billing - ONEIL-7 Assessment Tool: ONEIL-7 Assessment 12543 ([id number]) Time Spent (min) 31
[2023-06-01 07:31] VITALS: BP 114/78; BMI 33.2
== END 2023-06-01 07:49 | disposition home or self-care (01) ==
PROVIDERS: PCP Internal Medicine; Visit Provider Internal Medicine
DX: Z00.00 Encounter for general adult medical examination without abnormal findings (principal)
CPT/HCPCS: 99396

== ENCOUNTER 2023-06-01 08:00 | Outpatient (REF) | payer OTHER, SELFPAY ==
[2023-06-01 10:12] LABS: Alanine Aminotransferase 41 U/L (0-40); Albumin Level 4.2 g/dL (3.5-5.0); Alkaline Phosphatase 74 U/L (39-117); Anion Gap 9 (12-20); Aspartate Amino Transferase 25 U/L (5-37); Bilirubin Total 0.5 mg/dL (0.0-1.0); Blood Urea Nitrogen 18 mg/dL (9-16); Calcium 9.6 mg/dL (8.4-10.2); Carbon Dioxide 27 mmol/L (22-29); Chloride 107 mmol/L (96-108); Cholesterol 178 mg/dL (<200); Estimated Glomerular Filt Rate > 60; Glucose Fasting 96 mg/dL (60-99); HDL Cholesterol 40 mg/dL (>40); LDL Cholesterol Calculated 120 mg/dL (<100); Potassium 4.3 mmol/L (3.3-5.1); Sodium 139 mmol/L (135-145); Total Protein 7.7 g/dL (6.5-8.0); Triglycerides 90 mg/dL (<150)
[2023-06-01 10:32] LABS: Vitamin D 25-OH Total 14.5 ng/mL (>30)
== END 2023-06-01 08:01 | disposition home or self-care (01) ==
LOC: HO.LAB 08:00
PROVIDERS: PCP Internal Medicine; Visit Provider Internal Medicine
DX: Z00.00 Encounter for general adult medical examination without abnormal findings (principal); Z13.6 Encounter for screening for cardiovascular disorders; E55.9 Vitamin D deficiency, unspecified
CPT/HCPCS: 36415; 80053; 80061; 82306

== ENCOUNTER 2024-06-08 07:35 | Outpatient (AMB) | payer BC, SELFPAY ==
--- OUTSIDE RECORDS SUMMARY | 2024-06-08 07:41 | XMS_ITS | Clinical Summary ---
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 Phone Unavailable Primary Care Provider Unavailabl e Social History Tobacco Use Types Packs/Day Years Used Date Smoking Tobacco: Never Assessed Sex and Gender Information Value Date Recorded Sex Assigned at Male 01/26/2022 10:22 AM EDT Legal Sex Male 10:22 AM EDT Gender Identity Choose not to disclose 10:22 AM EDT Sexual Orientation Choose not to disclose 2021 10:22 AM EDT Plan of Treatment Health Maintenance Due Date Last Done Comments CT Colonography 1976 Colonoscopy 1976 Colorectal Cancer Screening 1976 Depression Screening 1976 FIT DNA/Cologuard 1976 FIT 1976 FOBT 1976 Lipid Panel 1976 Sigmoidoscopy 1976 Alcohol/Substance Use Screening 1988 Tobacco Screening 1988 Family Planning (PISQ) 02/04/1991 DTaP/Tdap/Td Vaccines (1 - Tdap) 02/04/1995 Hepatitis B Vaccines (1 of 3 - 19+ 3-dose series) 02/04/1995 COVID-19 Vaccine (2023-2 5 season) 2023 Influenza Vaccine (#1) 2023 Zoster Vaccines (1 of 2) 02/04/2026 RSV Patients and Pa tients Aged 60 years or older (1 - 1-dose 75+ series) 02/04/2051 HIB Vaccines Aged Out No longer eligi ble based on patient's age to complete this topic HPV Vaccines Aged Out No longer eligi ble based on patient's age to complete this topic Hepatitis A Vaccines Aged Out No long er eligible based on patient's age to complete this topic IPV Vaccines Aged Out No longer eligi ble based on patient's age to complete this topic Meningococcal Vaccine Aged Out No kaylyn sari eligible based on patient's age to complete this topic Pneumococcal Vaccine: Pediat rics (0 to 5 Years) and At-Risk Patients (6 to 49) Years) Aged Out No longer eligible b ased on patient's age to complete this topic RSV under 20 months Aged Out No longe r eligible based on patient's age to complete this topic Rotavirus Vaccines Aged Out No longer eligible based on patient's age to complete this topic
--- OUTSIDE RECORDS SUMMARY | 2024-06-08 07:41 | XMS_ITS | Encounter Summary ---
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 Role Phone Unavailable Primary Care Provider Unavailabl e Encounter Details Date Type Department Care Team (Latest Contact Info) Description 02/10/2022 Abstract [facility] CONVERSIONS Dental, Provider, DDS Social History Tobacco Use Types Packs/Day Years Used Date Smoking Tobacco: Never Assessed Sex and Gender Information Value Date Recorded Sex Assigned at Male 01/26/2022 10:22 AM EDT Legal Sex Male 10:22 AM EDT Gender Identity Choose not to disclose 10:22 AM EDT Sexual Orientation Choose not to disclose 2021 10:22 AM EDT documented as of this encounter Plan of Treatment Not on file documented as of this encounter Visit Diagnoses Not on filedocumented in this encounter
--- NOTE | 2024-06-08 08:17 | A.OFFPC_ITS ---
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: No Accompanied by: Self / Same As Patient Allergies montelukast Allergy (Severe, Verified 06/08/24 08:31) Rash prednisone Allergy (Severe, Verified 06/08/24 08:31) Rash seasonal allergies Allergy (Severe, Uncoded 06/08/24 08:31) Itching Medication List - Last Reconciled 06/08/24 by Meghan Ackerman MD cetirizine 10 mg PO DAILY PRN 90 days cholecalciferol (vitamin D3) 50 mcg PO DAILY 90 days omeprazole 20 mg PO DAILY 90 days varenicline tartrate 1 mg PO BID 30 days Tobacco use date assessed: 06/08/24 Dental Screening Dental Screen Date: 06/08/24 Did you have a dental visit in the last 12 months?: Yes Did you have a dental problem in the last 6 months where you did not have access to dental care?: No Was dental information given to patient?: Patient has dentist HPI HPI Comments History of Present Illness Details The patient is a 49-year-old male presenting for his annual physical examination. Notable in his history is his diagnosis of obesity, with a BMI calculated at 36, and gastroesophageal reflux disease managed by omeprazole. He currently smokes five cigarettes per day, a notable decrease from one pack per day, indicating partial success with Varenicline for smoking cessation, though complete abstinence has yet to be achieved. He describes ongoing issues with erectile dysfunction over the past six months, affecting the quality and consistency of his erectile function. Prior self- administered medications have proven ineffective. There is consideration of hormone levels potentially contributing to these symptoms. Additionally, he manages allergies with cetirizine and reports a rash possibly triggered by new laundry products. Allergy history reveals a rash associated with montelukast and prednisone use. The patient has undergone no new surgeries aside from a prior umbilical hernia repair and has generally positive family health indicators, with both parents alive and well. - Cologuard test completed in 2022; next due in 2025. - Tetanus vaccine last administered in ; Tdap vaccination recommended today. - Blood pressure reported within accepta ble range. - BMI of 36 reflecting Class 2 Obesity; advised weight management. - Smoking cessation efforts using Vareni donald noted; advised decrease smoking from 5 cigarettes per day to cessation. - No chest pain, shortness of breath, or significant findings on prior cholesterol tests; labs for updated cholesterol and Vitamin D levels to be ordered. [facility] Medical History (Updated 06/08/24 @ 08:46 by Meghan Ackerman MD) NORIS (obstructive sleep apnea) Retrognathia Supraumbilical hernia Hypovitaminosis D Hypertriglyceridemia Ventral hernia Face lesion Trigger finger of right thumb Obese Sleep apnea Surgical History H/O umbilical hernia repair Family History Mother No problems noted. Father No problems noted. 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 1. Little interest or pleasure in doing things: not at all 2. Feeling down, depressed, or hopeless: not at all 3. Trouble falling or staying asleep, or sleeping too much: not at all 4. Feeling tired or having little energy: not at all 5. Poor appetite or overeating: not at all 6. Feeling bad about yourself - or that you are a failure or have let yourself or your family down: not at all 7. Trouble concentrating on things, such as reading the newspaper or watching television: not at all 8. Moving or speaking so slowly that other people could have noticed. Or the opposite - being so fidgety or restless that you have been moving around a lot more than usual: not at all 9. Thoughts that you would be better off or of hurting yourself in some way: not at all Total score: 0 Depression Screening Interpretation: Negative Depression Screening Done: Yes 34629 - PHQ-9 Billing: Yes Source: Developed by Drs. Andrea Alba, Debora Lamb, Berhane Connor and colleagues, with an educational nica from [employer]. Thrive Questionnaire Date Thrive assessed: 06/06/24 I am a: Patient What is your living situation today?: I have a steady place to live Within the past 12 months, did the food you bought not last and you didn't have the money to get more?: I choose not to answer this question Within the past 12 months, did you worry whether your food would run out before you got money to buy more?: I choose not to answer this question Do you have trouble paying for medicines?: No Do you have trouble getting transportation to medical appointments?: No Do you have trouble paying your heating and electricity bill?: No Do you have trouble taking care of your child, family member or friend?: No Do you have trouble with day-to-day activities such as bathing, preparing meals, shopping, managing finances, etc.?: No Are you currently unemployed and looking for a job?: No Are you interested in more education?: No Please select the resources that you would like help with: None Currently or been in a relationship where the following occur: I choose not to answer THRIVE Score: 0 AUDIT C Alcohol Use Questionnaire (AUDIT-C) 1. How often do you have a drink containing alcohol?: Monthly or less 2. How many drinks containing alcohol do you have on a typical day when you are drinking?: 1 or 2 3. How often do you have six or more drinks on one occasion?: Never Total Score: 1 Score Reviewed/Action Taken: No ONEIL-7 AMB Questionnaire ONEIL-7 Date ONEIL - 7 assessed: 06/08/24 Feeling nervous, anxious, or on edge: 0 = Not at all Not being able to stop or control worryin = Not at all Worrying too much about different things: 0 = Not at all Trouble relaxin = Not at all Being so restless that it is hard to sit still: 0 = Not at all Becoming easily annoyed or irritable: 0 = Not at all Feeling afraid as if something awful might happen: 0 = Not at all Total ONEIL-7 score (0-4 normal; 5-9 mild; 10-14 moderate; 15-21 severe): 0 Source: Developed by Drs. Andrea Alba, Debora Lamb, Berhane Connor and colleagues, with an educational nica from [employer]. ONEIL-7 Assessment Billing ONEIL-7 Assessment Tool: ONEIL-7 Assessment 56229 Review of Systems Const All systems reviewed & are unremarkable except as noted in HPI and below Card Denies chest pain at rest, Denies chest pain with activity, Denies edema, Denies irregular heart rhythm, Denies claudication, Denies dyspnea, Denies dyspnea on exertion, Denies orthopnea, Denies paroxysmal nocturnal dyspnea and Denies slow heart rate Resp Denies cough, Denies dyspnea and Denies dyspnea on exertion GI Denies abdominal pain, Denies change in bowel habits, Denies excessive flatus, Denies nausea and Denies vomiting Reports erectile dysfunction Neuro Denies behavioral changes and Denies lack of coordination Psych Denies behavioral changes Physical exam (Primary Care) Vital Signs: Last Vital Signs BP 120/88 06/08/24 08:18 BMI result Body Mass Index 36.0 BMI Assessment/Plan discussion: High BMI High, discussed plan: lifestyle, weight reduction, dietary and physical activity Tobacco/Smoking Status: Tobacco use Status Tobacco use date assessed 06/08/24 06/08/24 08:23 Patient Tobacco Use Status Current everyday Tobacco 06/08/24 08:23 Tobacco use type Cigarette 06/08/24 08:23 e-Cigarette/Vaping Use Never Used 06/08/24 08:23 Are you ready to quit: Yes Tobacco cessation counseling provided: Yes Items discussed: Nicotine replacement and QuitWorks Relapse Prevention: discussed the importance of a supportive environment, discussed extending NRT, discussed negative mood or depression after quitting, weight gain after smoking is common and discussed dietary, exercise and/or lifestyle changes Number of minutes spent counselin CPT code: 25618 - 4-10 Minutes PHQ-9: PHQ-9 Score PHQ-9: Total score 0 06/08/24 08:37 Depression Screening Interpretation: Negative Thrive Assessment: Date of Thrive Assessment Date Thrive assessed 06/06/24 06/08/24 08:23 Currently or been in a relationship where the following occur: I choose not to answer HENMT Head: Yes normal to inspection, Yes normocephalic and Yes atraumatic Ears: external ears normal Eyes General: appearance normal, both eyes and all related structures Eyelids: Yes eyelids normal Conjunctivae: conjunctivae normal Neck Neck: Yes normal visual inspection and Yes supple Resp Effort & Inspection: normal respiratory effort Auscultation: clear to auscultation bilaterally Cardio Jugular venous distension: no JVD Rate: regular rate Rhythm: regular rhythm Heart sounds: S1 normal heart sound present and S2 normal heart sound present GI Inspection: Yes normal to inspection Palpation (GI): Soft to palpation and nontender Auscultation: normal bowel sounds Skin General skin exam: no rashes or lesions noted Neuro General: no focal motor deficits Extrem General: Yes full ROM Psych Appearance: grossly normal Immunizations Boostrix Tdap 2.5 Lf unit-8 mcg-5 Lf/0.5 mL intramuscular syringe Performing Provider: Meghan Ackerman MD [facility] Administered by: ALEXANDRU Frank on 06/08/24 08:45 Dose Route Admin Location Dispensed Lot Number Expiration Date NDC Manager Sourcing 0.5 mL IM Left Deltoid 0.5 mL [id number] 07/15/26 81723-256-80 [employer] VIS Given Date VIS Provided VIS Publication Date 06/08/24 Single Vaccine 20 Eligibility Eligibility Date Funding Source Not [facility] Eligible 06/08/24 Private Coding Level of Care Code Est Pt Level 3 (82695) Est Pt Prev Care 40-64y(38104) Diagnoses Physical exam Z00.00 Erectile dysfunction, unspecified erectile dysfunction type N52.9 Erectile dysfunction type: unspecified Additional Codes PHQ-9 - 25934 - PHQ-9 Billing: Yes ([id number]) ONEIL-7 Assessment Billing - ONEIL-7 Assessment Tool: ONEIL-7 Assessment 69742 ([id number]) Vital Signs *Quality* - CPT code: 49235 - 4-10 Minutes ([id number]) Time Spent (min) 35 Assessment & Plan Assessment & Plan (1) Physical exam: Code(s): Z00.00 - Encounter for general adult medical examination without abnormal findings Category: Medical (2) Erectile dysfunction: Code(s): N52.9 - Male erectile dysfunction, unspecified Category: Medical Qualifiers: Erectile dysfunction type: unspecified Qualified Code(s): N52.9 - Male erectile dysfunction, unspecified Plan During this visit, Tdap vaccination is recommended due to the overdue schedule, and tobacco cessation efforts continue with Varenicline aiding the reduction in smoking. Consideration of erectile dysfunction with associated testing of testosterone levels and providing medication for symptomatic relief was highlighted. Obesity and potential impacts post-smoking cessation were addressed with guidance on increased activity. Current allergies and laundry product changes were reviewed. Lab orders for monitoring cholesterol and Vitamin D deficiencies were placed to update baseline health status. Patient was informed and verbally consented to the use of an ambient scribe for clinic note documentation during this visit. I clarified the plan to administer the Tdap vaccine today and emphasized the need for consistent follow-up on smoking cessation efforts with the aid of Varenicline. For erectile dysfunction, I explained testing for testosterone levels and provided initial doses of oral medication with full disclosure of associated costs and lack of insurance coverage. I discussed weight management strategies considering potential weight gain post-cessation and advised initiating regular physical activity. I provided recommendations around the suspected allergen from laundry detergent and prescribed current allergy management with cetirizine. Further lab work will evaluate cholesterol and Vitamin D status following the prior testing. Orders: Orders Comprehensive [place]. Panel Fast Today Z00.00 - Encounter for general adult medical examination without abnormal findings Lipid Panel Today Z00.00 - Encounter for general adult medical examination without abnormal findings Testosterone, Free/Total Today N52.9 - Male erectile dysfunction, unspecified PSA,Total (Free>4and<10) Today R35.1 - Nocturia Vitamin D 25-OH Total Today E55.9 - Vitamin D deficiency, unspecified TDaP Immunization Today Z23 - Encounter for immunization Referrals Urology Referral N52.9 - Male erectile dysfunction, unspecified Medications: New Boostrix Tdap (diphth,pertus(acell),tetanus) 0.5 mL IM ONCE 0.5 mL 0RF NS Z23 - Encounter for immunization sildenafil administer 30 minutes to 4 hours before activity 50 mg PO DAILY 3 days PRN 3 tabs 0RF sexual activity Patient Instructions: - Receive Tdap vaccine today. - Continue using Varenicline and work towards quitting smoking. - Increase physical activity to manage weight. - Monitor response to testosterone and follow-up as needed. - Continue allergy medication and consider changing detergent. - Follow any new lab results and dietary recommendations. - Report any new or worsening symptoms immediately.
[2024-06-08 08:18] VITALS: BP 120/88; BMI 36.0
== END 2024-06-08 08:46 | disposition home or self-care (01) ==
LOC: HO.HMCH 07:36
PROVIDERS: PCP Internal Medicine; Visit Provider Internal Medicine
DX: Z00.00 Encounter for general adult medical examination without abnormal findings (principal); N52.9 Male erectile dysfunction, unspecified; Z23 Encounter for immunization; F17.210 Nicotine dependence, cigarettes, uncomplicated

== ENCOUNTER → 2024-06-08 07:35 | Outpatient (BNVA) | payer BC, SELFPAY | PROVIDERS: PCP Internal Medicine; Visit Provider Internal Medicine | DX: Z00.00 Encounter for general adult medical examination without abnormal findings (principal); Z23 Encounter for immunization; N52.9 Male erectile dysfunction, unspecified; E66.9 Obesity, unspecified; Z68.36 Body mass index [BMI] 36.0-36.9, adult; K21.9 Gastro-esophageal reflux disease without esophagitis; F17.210 Nicotine dependence, cigarettes, uncomplicated; Z79.899 Other long term (current) drug therapy | CPT/HCPCS: 90471; 90715; 96127 ==

== ENCOUNTER 2024-06-16 08:32 | Outpatient (REF) | payer BC, SELFPAY ==
[2024-06-16 10:07] LABS: Alanine Aminotransferase 50 U/L (0-40); Albumin Level 4.1 g/dL (3.5-5.0); Alkaline Phosphatase 68 U/L (39-117); Anion Gap 9 (12-20); Aspartate Amino Transferase 31 U/L (5-37); Bilirubin Total 0.7 mg/dL (0.0-1.0); Blood Urea Nitrogen 17 mg/dL (9-16); Calcium 9.4 mg/dL (8.4-10.2); Carbon Dioxide 25 mmol/L (22-29); Chloride 111 mmol/L (96-108); Cholesterol 161 mg/dL (<200); Estimated Glomerular Filt Rate > 60; Glucose Fasting 98 mg/dL (60-99); HDL Cholesterol 44 mg/dL (>40); LDL Cholesterol Calculated 102 mg/dL (<100); Potassium 4.3 mmol/L (3.3-5.1); Sodium 141 mmol/L (135-145); Total Protein 7.7 g/dL (6.5-8.0); Triglycerides 77 mg/dL (<150)
[2024-06-16 10:23] LABS: PSA,Total (Free>4and<10) 0.91 ng/mL (0.00-4.00)
[2024-06-16 10:24] LABS: Vitamin D 25-OH Total 37.5 ng/mL (>30)
[2024-06-23 14:27] LABS: Testosterone, Free 65.3 pg/mL (35.0-155.0); Testosterone, Total 386 ng/dL (250-1100)
== END 2024-06-16 08:33 | disposition home or self-care (01) ==
LOC: HO.LAB 08:32
PROVIDERS: PCP Internal Medicine; Visit Provider Internal Medicine
DX: Z00.00 Encounter for general adult medical examination without abnormal findings (principal); R35.1 Nocturia; N52.9 Male erectile dysfunction, unspecified; E55.9 Vitamin D deficiency, unspecified; Z12.5 Encounter for screening for malignant neoplasm of prostate
CPT/HCPCS: 36415; 80053; 80061; 82306; 84153; 84402; 84403

== ENCOUNTER 2024-08-09 08:35 | Outpatient (AMB) | payer BC, SELFPAY ==
--- NOTE | 2024-08-09 08:38 | MHC.OFFVIS ---
Intake Visit Reasons: Male erectile dysfunction Intake Note: Pt presents to the office today for erectile dysfunction. Urology Meds: Sildenafil Blood thinners: None Allergies montelukast Allergy (Severe, Verified 08/09/24 09:12) Rash prednisone Allergy (Severe, Verified 08/09/24 09:12) Rash seasonal allergies Allergy (Severe, Uncoded 08/09/24 09:12) Itching Medication List - Last Reconciled 08/09/24 by ROBY Tariq- cetirizine 10 mg PO DAILY PRN 90 days cholecalciferol (vitamin D3) 50 mcg PO DAILY 90 days omeprazole 20 mg PO DAILY 90 days sildenafil 50 mg PO .PRN PRN 30 days tadalafil (Cialis) 5 mg PO DAILY 90 days varenicline tartrate 1 mg PO BID 30 days HPI Comments Details: Rosendo is a very pleasant 49-year-old male patient of Dr. Gillespie. He has a past medical history of obstructive sleep apnea on CPAP, obesity, and hernia. He presents to the office today as a new patient for erectile dysfunction. In discussion with the patient today he reports noting over the last few months to be having issues maintaining his erections. He reports having followed up with his PCP in discussing this issue at which time recommendations were made for urology referral for further assessment evaluation. He reports significant improvement in maintaining his erections with p.r.n. Viagra 50 mg that was given to him by his PCP. In review of patient's chart it appears testosterone and PSA results were obtained. These results were reviewed and communicated with the patient today: PSA: 06/20 0.9 Testosterone: 06/20 386 Free testosterone: 06/20 65.3 We discussed at length potential causes of erectile dysfunction as well as further treatment options and risks and benefits of these treatment options. He otherwise denies any bothersome urinary issues or concerns. He denies urinary urgency, urinary frequency, incontinence, nocturia, hematuria, dysuria, foul smelling urine, changes to urinary stream, flank pain, fever, and or chills. He is happy with his current voiding parameters. In office urinalysis results reviewed with the patient today. All questions were answered. He otherwise offers no other issues or concerns at this time. History of Present Illness The patient is a 49-year-old male presenting with erectile dysfunction, which has been ongoing for several months. He describes the issue as sporadic in effectiveness, having sometimes satisfactory and sometimes inadequate erections. He has tried Sildenafil (Viagra) 50 mg, with good effect. There is no mention of concurrent urinary complaints, and the patient lives a low-stress lifestyle, reports good sleep hygiene, and engages in regular physical activity. Plan For erectile dysfunction, I will start Tadalafil 5 mg daily and maintain Sildenafil 50 mg as needed, focusing on stabilizing erectile function and optimizing hormonal balance. The patient responded to Sildenafil previously, validating the choice. Therapeutic effectiveness evaluation will occur in approximately three months, with potential dose reassessment. Discussed emphasizing lifestyle adjustments as an adjunct, with no current urinary symptomatology, suggesting additional monitoring is unnecessary presently. Patient was informed and verbally consented to the use of an ambient scribe for clinic note documentation during this visit. Discussion Notes We discussed the diagnosis of erectile dysfunction. I proposed initiating a regimen of daily Tadalafil 5 mg to potentially enhance testosterone levels and improve erectile function. The patient has previously responded to Sildenafil, hence its continued use at 50 mg as required was offered. Risks associated with higher doses and frequent use were reviewed. I highlighted the importance of adherence to medication to optimize outcomes and suggested lifestyle changes for supplementary benefits. Follow-up in three months is planned to evaluate Tadalafil's effectiveness on erectile dysfunction, with sequential adjustment based on response. Sufficient explanation on treatment alternatives and success rates was given, and the patient expressed understanding and agreement with the plan. [facility] Medical History NORIS (obstructive sleep apnea) Retrognathia Supraumbilical hernia Hypovitaminosis D Hypertriglyceridemia Ventral hernia Face lesion Trigger finger of right thumb Obese Sleep apnea Surgical History H/O umbilical hernia repair Family History Mother No problems noted. Father No problems noted. 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 Current occupational exposures/hazards: No Cognitive needs: No Hearing needs: No Vision needs: No Review of Systems Const All systems reviewed & are unremarkable except as noted in HPI and below Physical Exam Const General: cooperative, healthy appearing, comfortable, no acute distress, well developed, alert and awake Nutritional Appearance: overweight Orientation/consciousness: patient oriented x3 Limitations: no limitations HEENT Head: Yes normal to inspection, Yes normocephalic and Yes atraumatic Ears: hearing grossly normal bilaterally Eyes General: appearance normal, both eyes and all related structures Neck Neck: Yes normal visual inspection and Yes trachea midline Chest Chest palpation & inspection: normal inspection of the chest Resp Effort & Inspection: normal respiratory effort and able to speak in complete sentences Cardio Rate: regular rate GI Inspection: Yes normal to inspection General: Yes no CVA tenderness Back/Spine/Pelvis Back: no CVA tenderness Skin General skin exam: no rashes or lesions noted Neuro General: patient oriented x3 Extrem General: Yes normal to inspection Psych Appearance: grossly normal and well kempt Mental Status: mental status grossly normal Speech and movement: Normal speech and movement present and Clear speech present Affect: normal affect Attitude: cooperative Thought process: Normal thought process present Thought content: Normal thought content present Insight: Fair insight present (Psych) Judgement: Fair judgement present (Psych) Results AMB Urinalysis, Automated UA Leukoctes 0 Jim/uL Last Edit by Genet Hercules CMA on 08/09/24 08:45 UA Nitrite Negative Last Edit by Genet Hercules CMA on 08/09/24 08:45 UA Urobilinogen 0.2 mg/dL Last Edit by Genet Hercules CMA on 08/09/24 08:45 UA Protein 0 mg/dL Last Edit by Genet Hercules CMA on 08/09/24 08:45 UA pH 6.0 Last Edit by Genet Hercules CMA on 08/09/24 08:45 UA Blood 0 Lan/uL Last Edit by Genet Hercules CMA on 08/09/24 08:45 UA Specific [place] 1.020 Last Edit by Genet Hercules CMA on 08/09/24 08:45 UA Ketone Negative Last Edit by Genet Hercules CMA on 08/09/24 08:45 UA Bilirubin 0 mg/dL Last Edit by Genet Hercules CMA on 08/09/24 08:45 UA Glucose 0 mg/dL Last Edit by Genet Hercules CMA on 08/09/24 08:45 Results Reviewed Results Reviewed: Laboratory Last Values Urine pH (Auto) 6.0 08/09/24 08:42 Specific [place] (Auto) 1.020 08/09/24 08:42 Urine Protein (Auto) 0 mg/dL 08/09/24 08:42 Glucose (UA)(Auto) 0 mg/dL 08/09/24 08:42 Urine Ketones (Auto) Negative 08/09/24 08:42 Urine Blood (Auto) 0 Lan/uL 08/09/24 08:42 Urine Nitrite (Auto) Negative 08/09/24 08:42 Urine Bilirubin (Auto) 0 mg/dL 08/09/24 08:42 Urine Urobilinogen (Auto) 0.2 mg/dL 08/09/24 08:42 Leukocyte Esterase (Auto) 0 Jim/uL 08/09/24 08:42 Assessment & Plan Assessment & Plan (1) Erectile dysfunction: Code(s): N52.9 - Male erectile dysfunction, unspecified Category: Medical Qualifiers: Erectile dysfunction type: unspecified Qualified Code(s): N52.9 - Male erectile dysfunction, unspecified Plan In office urinalysis results reviewed with the patient today; as noted above. Recent PSA and testosterone results reviewed with the patient today; as noted above. He currently denies any bothersome urinary issues or concerns. He reports be happy with current voiding parameters. We discussed at length potential causes of ED as well as further treatment options and risks and benefits of these treatment options. Start Cialis 5 mg daily. Prescription provided for p.r.n. Viagra. We discussed lifestyle modifications to assist with ED as well as overall health and well-being. Follow-up in 3 months; or sooner with any issues, concerns, and or questions. Orders: Orders AMB Urinalysis Automated Today Z13.9 - Encounter for screening, unspecified Medications: New tadalafil (Cialis) [id number] [facility] [id number] Member [id number] 5 mg PO DAILY 90 tabs 1RF 90 days Changed From sildenafil administer 30 minutes to 4 hours before activity 50 mg PO DAILY PRN 3 tabs 0RF sexual activity 3 days To sildenafil administer 30 minutes to 4 hours before activity [id number] [facility] [id number] Member [id number] 50 mg PO .PRN PRN 14 tabs 3RF sexual activity 30 days Patient Instructions: The patient had an opportunity to ask questions regarding the treatment plan. All questions were answered. Physical exam, labs, and imaging were discussed and reviewed in detail. As well as risks, benefits, and discussion of treatment choices. No major barriers to understanding were identified. The patient expressed understanding and agreement with the above treatment plan. The patient was made aware they should contact our office by phone for worsening of their current condition, the appearance of new symptoms, or with any questions or concerns. Compliance is encouraged with any medications and follow up testing that is ordered. It is a privilege to be allowed the opportunity to participate in? your urological care.? Again, if you have any questions or concerns If you have any questions or concerns please do not hesitate to contact me. The office is [phone]. This note is constructed using voice recognition software. While every effort has been made to ensure accuracy dock operations supervisor errors may have been included. Yours sincerely, RAJESH Tariq Coding Level of Care Code New Pt Level 4 (44505) Diagnoses Erectile dysfunction, unspecified erectile dysfunction type N52.9 Erectile dysfunction type: unspecified
== END 2024-08-09 09:09 | disposition home or self-care (01) ==
LOC: HO.HUSH 08:36
PROVIDERS: PCP Internal Medicine; Visit Provider Nurse Practitioner Family
DX: Z13.9 Encounter for screening, unspecified (principal); N52.9 Male erectile dysfunction, unspecified
CPT/HCPCS: 99204

== ENCOUNTER → 2024-08-09 08:35 | Outpatient (BNVA) | payer BC, SELFPAY | PROVIDERS: PCP Internal Medicine; Visit Provider Nurse Practitioner Family | DX: N52.9 Male erectile dysfunction, unspecified (principal) | CPT/HCPCS: 81003 ==

== ENCOUNTER 2024-12-22 09:29 | Outpatient (AMB) | payer BC, SELFPAY ==
--- NOTE | 2024-12-22 09:50 | A.OFFPC_ITS ---
Vital Signs 12/22/24 09:51 Height 5 ft 7 in Weight 228 lb 1 oz BMI 35.7 BP 130/74 Blood Pressure Location Lt brachial Position Sitting Pulse 93 Pulse Source Pulse Oximeter Temp 97.5 F Temp Source Temporal Artery Scan Pulse Oximetry (%) 96 Oxygen Delivery Method Room Air Intake Visit Reasons: Back Pain Intake Note: Patient is here to follow up on Back pain. Master Tax Advisor Required: No Nurse Licensed Practical: Not Required per policy Accompanied by: Self / Same As Patient Allergies montelukast Allergy (Severe, Verified 12/22/24 09:51) Rash prednisone Allergy (Severe, Verified 12/22/24 09:51) Rash seasonal allergies Allergy (Severe, Uncoded 12/22/24 09:51) Itching Medication List - Last Reconciled 12/22/24 by Obed Talavera MD cetirizine 10 mg PO DAILY PRN 90 days cholecalciferol (vitamin D3) 50 mcg PO DAILY 90 days omeprazole 20 mg PO DAILY 90 days sildenafil 50 mg PO .PRN PRN 30 days tadalafil (Cialis) 5 mg PO DAILY 90 days varenicline tartrate 1 mg PO BID 30 days Tobacco use date assessed: 12/22/24 Dental Screening Dental Screen Date: 06/08/24 HPI HPI Comments History of Present Illness Details 49-year-old male patient with past medic al history skin lesions smoking NORIS and acid reflux presenting to clinic today for lower back pain. Patient reports injury at work when he was lifting heavy objects. He was seen at the urgent care who diagnosed him with spondyloesthesis. And they recommended him following with Orthopedic surgery and he was prescribed cyclobenzaprine. Patient reports cyclobenzaprine has been helping him sleeping but not much with the pain. He reports today he is still in mild pain but the pain improves if he is not doing physical activity. [facility], [facility] Medical History NORIS (obstructive sleep apnea) Retrognathia Supraumbilical hernia Hypovitaminosis D Hypertriglyceridemia Ventral hernia Face lesion Trigger finger of right thumb Obese Sleep apnea Surgical History H/O umbilical hernia repair Family History Mother No problems noted. Father No problems noted. 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 Current occupational exposures/hazards: No Cognitive needs: No Hearing needs: No Vision needs: No Questionnaire Thrive Questionnaire Date Thrive assessed: 06/06/24 I am a: Patient What is your living situation today?: I have a steady place to live Within the past 12 months, did the food you bought not last and you didn't have the money to get more?: I choose not to answer this question Within the past 12 months, did you worry whether your food would run out before you got money to buy more?: I choose not to answer this question Do you have trouble paying for medicines?: No Do you have trouble getting transportation to medical appointments?: No Do you have trouble paying your heating and electricity bill?: No Do you have trouble taking care of your child, family member or friend?: No Do you have trouble with day-to-day activities such as bathing, preparing meals, shopping, managing finances, etc.?: No Are you currently unemployed and looking for a job?: No Are you interested in more education?: No Please select the resources that you would like help with: None Currently or been in a relationship where the following occur: I choose not to answer THRIVE Score: 0 ONEIL-7 AMB Questionnaire ONEIL-7 Date ONEIL - 7 assessed: 06/08/24 Source: Developed by Drs. Andrea Alba, Debora Lamb, Berhane Connor and colleagues, with an educational nica from [employer] Review of Systems Const Details: Positives besides what was mentioned in HPI are in BOLD Constitutional: No Weight Change, No Fever, No Chills, No Night Sweats, No Fatigue, No Malaise ENT/Mouth: No Hearing Changes, No Ear Pain, No Nasal Congestion, No Sinus Pain, No Hoarseness, No sore throat, No Rhinorrhea, No Swallowing Difficulty Eyes: No Eye Pain, No Swelling, No Redness, No Foreign Body, No Discharge, No Vision Changes Cardiovascular: No Chest Pain, No SOB, No PND, No Dyspnea on Exertion, No Orthopnea, No Claudication, No Edema, No Palpitations Respiratory: No Cough, No Sputum, No Wheezing, No Smoke Exposure, No Dyspnea Gastrointestinal: No Nausea, No Vomiting, No Diarrhea, No Constipation, No Pain, No Heartburn, No Anorexia, No Dysphagia, No Hematochezia, No Melena, No Flatulence, No Jaundice Genitourinary: No Dysmenorrhea, No DUB, No Dyspareunia, No Dysuria, No Urinary Frequency, No Hematuria, No Urinary Incontinence, No Urgency, No Flank Pain, No Urinary Flow Changes, No Hesitancy Musculoskeletal: No Arthralgias, No Myalgias, No Joint Swelling, No Joint Stiffness, No Back Pain, No Neck Pain, No Injury History Skin: No Skin Lesions, No Pruritis, No Hair Changes, No Breast/Skin Changes, No Nipple Discharge Neuro: No Weakness, No Numbness, No Paresthesias, No Loss of Consciousness, No Syncope, No Dizziness, No Headache, No Coordination Changes, No Recent Falls Psych: No Anxiety/Panic, No Depression, No Insomnia, No Personality Changes, No Delusions, No Rumination, No SI/HI/AH/VH, No Social Issues, No Memory Changes, No Violence/Abuse Hx., No Eating Concerns Heme/Lymph: No Bruising, No Bleeding, No Transfusions History, No Lymphadenopathy Endocrine: No Polyuria, No Polydipsia, No Temperature Intolerance Physical exam (Primary Care) Vital Signs: Last Vital Signs Temp 97.5 F 12/22/24 09:51 Pulse 93 12/22/24 09:51 BP 130/74 12/22/24 09:51 Pulse Ox 96 12/22/24 09:51 Oxygen Delivery Method Room Air 12/22/24 09:51 BMI result Body Mass Index 35.7 Tobacco/Smoking Status: Tobacco use Status Tobacco use date assessed 12/22/24 12/22/24 09:55 Patient Tobacco Use Status Current everyday Tobacco 12/22/24 09:55 Tobacco use type Cigarette 12/22/24 09:55 e-Cigarette/Vaping Use Never Used 12/22/24 09:55 Thrive Assessment: Date of Thrive Assessment Date Thrive assessed 06/06/24 12/22/24 09:55 Currently or been in a relationship where the following occur: I choose not to answer Const Other: Pertinent findings are in BOLD GENERAL APPEARANCE NAD, activity normal for age, well developed/ well nourished, no cyanosis, pallor, or diaphoresis. EYES lids/conjunctiva normal. EARS/NOSE/THROAT Mucous membranes moist, nares normal, lips/teeth normal uvula midline without oral pharyngeal erythema, exudate or swelling TMs normal bilaterally. No lymphangitis/lymphedema. HEAD/NECK normocephalic atraumatic, no facial trauma, neck is supple. RESPIRATORY respiratory effort normal, speaks in full sentences, no tripod position, no accessory muscle use. Lungs clear to auscultation without rhonchi, wheezes, rales CARDIAC Regular rate and rhythm, no edema. ABDOMINAL Soft, ND/NT. No evidence of fluid wave. No pulsatile masses on exam, rebound tenderness, Estrada sign or pain over Mcburney's point. MUSCLES/EXTREMITIES No abnormal range of motion, no swelling. SKIN Warm, pink and dry. No rashes, dermatoses, petechiae or lesions. NEUROLOGICAL Speech is clear and appropriate. Normal level of consciousness. Gait and coordination are normal. 5/5 strength in all extremities. PSYCH Normal mood and affect. Judgement/competence is appropriate Coding Level of Care Code Est Pt Level 3 (16742) Diagnoses Lower back pain M54.50 Assessment & Plan Assessment & Plan (1) Lower back pain: Code(s): M54.50 - Low back pain, unspecified Category: Medical Plan: We will get CT of lower back. Ibuprofen 200-400 every 8 hours for pain. Advised patient he can get Tylenol [id number] and alternate between Tylenol and ibuprofen if he has been taking a lot of ibuprofen. Physical therapy to assist with pain. Orthopedic surgery referral. Orders: Orders PT Evaluation and Treatment Today M54.50 - Low back pain, unspecified CT lumbar spine wo IV con Today M54.50 - Low back pain, unspecified Referrals Orthopedics Referral M54.50 - Low back pain, unspecified Medications: New ibuprofen 400 mg (2 x 200 mg) PO Q8H 90 tabs 1RF
[2024-12-22 09:51] VITALS: BP 130/74; PULSE 93; TEMP 36.4; O2SAT 96; BMI 35.7
--- OUTSIDE RECORDS SUMMARY | 2024-12-22 10:26 | XMS_ITS | Clinical Summary ---
Author Organization [employer] Address [address] [place] [address] [address] [place] [address] Care Team Providers Care Tariff Counsel Name Role Phone Unavailable Primary Care Provider [...] FOBT 1976 Lipid Panel 1976 Sigmoidoscopy 1976 Disability Screening 1976 Alcohol/Substance Use Screening 1988 Tobacco Screening 1988 Family Planning (PISQ) 02/04/1991 DTaP/Tdap/Td Vaccines (1 - Tdap) 02/04/1995 Hepatitis B Vaccines (1 of 3 - 19+ 3-dose series) 02/04/1995 COVID-19 Vaccine ( - 2023-2 5 season) 2024 Influenza Vaccine (#1) 2024 Zoster Vaccines (1 of 2) 02/04/2026 RSV [...] patient's age to complete this topic Meningococcal B Vaccine Aged Out No l onger eligible based on patient's age to complete this topic Meningococcal Vaccine Aged Out No kaylyn sari eligible based on patient's age to complete this topic Pneumococcal Vaccine: Pediat rics (0 to 5 Years) and At-Risk Patients (6 to 49) Years Aged Out No longer eligible b ased on patient's age to complete this topic RSV under 20 months Aged Out No longe r eligible based on patient's age to complete this topic Rotavirus Vaccines Aged Out No longer eligible based on patient's age to complete this topic
--- OUTSIDE RECORDS SUMMARY | 2024-12-22 10:26 | XMS_ITS | Encounter Summary ---
Author Organization [employer] Address [address] [place] [address] Care Team Providers Care Director Translation Name Role Phone Unavailable Primary Care Provider [...]
== END 2024-12-22 11:04 | disposition home or self-care (01) ==
LOC: HO.HMCH 09:29
PROVIDERS: PCP Internal Medicine; Visit Provider Internal Medicine
DX: M54.50 Low back pain, unspecified (principal)

== ENCOUNTER 2025-02-01 14:31 | Outpatient (AMB) | payer OTHER, SELFPAY ==
[2025-02-01 14:41] VITALS: BP 148/85; PULSE 90; RESP 16; O2SAT 95; BMI 35.2
--- NOTE | 2025-02-01 14:41 | A.OFFVIS_ITS ---
Vital Signs 02/01/25 14:41 Height 5 ft 7 in Weight 225 lb BMI 35.2 BP 148/85 H Blood Pressure Location Rt brachial Position Sitting Respiration 16 Pulse 90 Pulse Source Pulse Oximeter Pulse Oximetry (%) 95 Oxygen Delivery Method Room Air Intake Visit Reasons: Low back pain - work injury Sodium Methylate Operator Required: No Accompanied by: Self / Same As Patient Allergies montelukast Allergy (Severe, Verified 02/01/25 14:47) Rash prednisone Allergy (Severe, Verified 02/01/25 14:47) Rash seasonal allergies Allergy (Severe, Uncoded 12/22/24 09:51) Itching HPI Comments Details: Rosendo is very pleasant 49 years old gentleman who presents in my office with complains on axial back pain. He reported that this problem started on 11/28/2024. He reports that he thinks that his pain is related to heavy lifting. 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 He is currently working full-time. He reports that he went to urgent care facility and he was diagnosed with pars fracture and spondylolisthesis. He reported that his pain initially was very severe right now his pain is less intense he reports pain 3/10. Nevertheless he is unable to sleep normally, he can do activities of daily living, he is able to take care of himself but he can not function normally. Weather changes and motions aggravate his pain. In terms of tissue damage he reports his pain as tingling, stinging, tight, squeezing, and tearing sensation. He is taking ibuprofen for his pain. He never had physical therapy for his pain. He never had any images short of plain x-ray in urgent care. He never had chiropractic manipulations. He never had any injections. He denies any past medical history, he denies any past surgical history, he admits smoking cigarettes on pack 1 pack per 3 days. He admits drinking 1 shot a week. He denies caffeinated beverages he denies recreational drugs. [facility] Medical History NORIS (obstructive sleep apnea) Retrognathia Supraumbilical hernia Hypovitaminosis D Hypertriglyceridemia Ventral hernia Face lesion Trigger finger of right thumb Obese Sleep apnea Surgical History H/O umbilical hernia repair Family History Mother No problems noted. Father No problems noted. 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 Current occupational exposures/hazards: No Cognitive needs: No Hearing needs: No Vision needs: No Review of Systems Const All systems reviewed & are unremarkable except as noted in HPI and below ENT Reports Normal hearing present Neuro Reports Normal hearing present, Denies Abnormal speech present, Denies confusion and Denies Sensory deficit (Neuro) Psych Denies confusion Physical Exam Vital Signs: Last Vital Signs Pulse 90 02/01/25 14:41 Resp 16 02/01/25 14:41 BP 148/85 H 02/01/25 14:41 Pulse Ox 95 02/01/25 14:41 Oxygen Delivery Method Room Air 02/01/25 14:41 BMI result Body Mass Index 35.2 Const General: no acute distress; No confusion Nutritional Appearance: obese morbidly obese Orientation/consciousness: patient oriented x3 and No confusion Eyes General: appearance normal, both eyes and all related structures Pupils: Equal, round and reactive pupils present EOM: EOMs intact bilaterally Neck Neck: Yes full ROM Chest Chest palpation & inspection: normal inspection of the chest Resp Effort & Inspection: normal respiratory effort, able to speak in complete sentences, normal respiratory pattern, no audible wheezes and no cough Cardio Jugular venous distension: no JVD GI Inspection: Yes normal to inspection Back/Spine/Pelvis Other: There is severe tenderness on palpation in projection of the center of the lumbar spine. No radiation of the pain into extremities. Valsalva maneuver aggravate his pain. Neuro General: patient oriented x3, gait normal and No confusion Cranial nerves: Yes CN's II-XII intact bilaterally, Yes Equal, round and reactive pupils present, Yes Normal hearing present and Yes Ability to bilaterally elevate shoulders present Speech: No Abnormal speech present Gait exam (Neuro): Normal gait present Motor exam (neuro): 5/5 motor strength present throughout Sensory Exam: No Sensory deficit (Neuro) Extrem General: No pedal edema Psych Speech and movement: Normal speech and movement present Affect: normal affect Attitude: cooperative Thought process: Normal thought process present Thought content: Normal thought content present Insight: Good insight present (Psych) Judgement: Good judgement present (Psych) Assessment & Plan Assessment & Plan (1) Spondylolisthesis due to traumatic injury: Code(s): M43.10 - Spondylolisthesis, site unspecified; T14.90XS - Injury, unspecified, sequela Category: Medical (2) Pars defect with spondylolisthesis: Code(s): M43.10 - Spondylolisthesis, site unspecified Category: Medical Plan I will send this patient for x-ray of the lumbar spine 6 views with bending as well as MRI of the lumbar spine. If this patient has pars fracture and it is unstable requires neurosurgical intervention. I explained to the patient that he would be better off staying from lifting heavy loads at his work. The patient expressed understanding. I also explained to the patient that I will schedule him for an appointment in 1 week as [place] planning to evaluate his x-ray of the lumbar spine and decide on whether or not this spondylolisthesis is unstable and requires neurosurgical intervention. In case it is stable spondylolisthesis I would need to send him for physical therapy and we can offer him diagnostic medial branch block. Orders: Orders XR lumbar spine 6V w bending Today M43.10 - Spondylolisthesis, site unspecified, T14.90XS - Injury, unspecified, sequela MR lumbar spine wo con Today M43.10 - Spondylolisthesis, site unspecified Coding Level of Care Code New Pt Level 3 (06100) Diagnoses Spondylolisthesis due to traumatic injury M43.10; T14.90XS Pars defect with spondylolisthesis M43.10
--- OUTSIDE RECORDS SUMMARY | 2025-02-01 17:46 | XMS_ITS | Encounter Summary ---
Author Organization [employer] Address [address] [place] [address] Care Team Providers Care Experimental Mechanic Name Role Phone Unavailable Primary Care Provider [...]
--- OUTSIDE RECORDS SUMMARY | 2025-02-01 17:46 | XMS_ITS ---
Author Name [facility] Organization Unknown History of Medication Use Medication Directions Dispensed Refills Start Date End Date Stat us cyclobenzaprine 11/28/2024 activ e ibuprofen 11/26/2024 active methocarbamol 11/26/2024 active cetirizine HCl 10/24/2024 active cholecalciferol (vitamin D3) 10/04/2024 active varenicline tartrate 08/28/2024 active omeprazole 08/28/2024 active Care Team Organization Name Specialty Phone Email Start Date End [facility] 12/29/2024 [facility] 12/29/2024
--- OUTSIDE RECORDS SUMMARY | 2025-02-01 17:46 | XMS_ITS | Clinical Summary ---
Author Organization [employer] Address [address] [place] [address] [address] [place] [address] Care Team Providers Care Passenger Tire Inspector Name Role Phone Unavailable Primary Care Provider [...]
== END 2025-02-01 15:12 | disposition home or self-care (01) ==
PROVIDERS: PCP Internal Medicine; Visit Provider Anesthesiology
DX: M54.50 Low back pain, unspecified (principal); M43.16 Spondylolisthesis, lumbar region; T14.90XS Injury, unspecified, sequela
CPT/HCPCS: 99203

== ENCOUNTER → 2025-02-01 14:31 | Outpatient (BNVA) | payer OTHER, SELFPAY | PROVIDERS: PCP Internal Medicine; Visit Provider Anesthesiology | DX: M43.10 Spondylolisthesis, site unspecified (principal); T14.90XS Injury, unspecified, sequela | CPT/HCPCS: 99202 ==

== ENCOUNTER 2025-02-12 13:39 | Outpatient (REF) | payer OTHER, SELFPAY ==
--- NOTE | ~2025-02-12 | XR_ITS ---
EXAMINATION: XR LUMBOSACRAL SPINE CLINICAL INFORMATION: M43.10 - Spondylolisthesis, site unspecified COMPARISON: None available. TECHNIQUE: 7 views of the lumbar spine, inclusive of flexion and extension views, were obtained. FINDINGS: 5 lumbar type vertebral bodies. Mild L5-S1 anterolisthesis. Possible bilateral L5 pars defects. Vertebral body heights are maintained. No evidence of acute fracture. Mild-moderate L5-S1 and L1-2 disc space narrowing. No instability on the flexion-extension views identified. Paraspinal soft tissue appears unremarkable. SI joints are symmetric. No abnormal soft tissue calcification. XR/XR lumbar spine 6V w bending IMPRESSION: No acute findings. Mild L5-S1 anterolisthesis. Possible bilateral L5 pars defects. Lumbar spondylosis. Electronically signed by: Suleman Kaur MD 02/13/2025 08:19 AM RAIMUNDO CASTELLANOS
== END 2025-02-12 13:40 | disposition home or self-care (01) ==
LOC: HO.XRAY 13:39
PROVIDERS: PCP Internal Medicine; Visit Provider Anesthesiology
DX: M43.10 Spondylolisthesis, site unspecified (principal); T14.90XS Injury, unspecified, sequela
CPT/HCPCS: 72114

== ENCOUNTER → 2025-02-12 13:44 | Outpatient (BNV) | payer OTHER, SELFPAY | PROVIDERS: PCP Internal Medicine; Visit Provider Radiology Diagnostic Ultrasound | DX: M43.17 Spondylolisthesis, lumbosacral region (principal); M47.816 Spondylosis without myelopathy or radiculopathy, lumbar region | CPT/HCPCS: 72114 ==

== ENCOUNTER 2025-02-15 12:45 | Outpatient (AMB) | payer OTHER, SELFPAY ==
[2025-02-15 12:52] VITALS: BP 133/81; PULSE 93; RESP 16; O2SAT 96; BMI 35.4
--- NOTE | 2025-02-15 12:52 | MHC.OFFVIS ---
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 The results of the x-ray dictated as below. He does have old pars fracture however his spine is stable at this time. I will send him for physical therapy. After he will complete physical therapy I will treat his pain with medial branch blocks eventually leading to sprint PNS versus RFA. Prior: with complains on axial back pain. He reported that this problem started on 11/28/2024. He reports that he thinks that his pain is related to heavy lifting. 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 He is currently working full-time. He reports that he went to urgent care facility and he was diagnosed with pars fracture and spondylolisthesis. He reported that his pain initially was very severe right now his pain is less intense he reports pain 3/10. Nevertheless he is unable to sleep normally, he can do activities of daily living, he is able to take care of himself but he can not function normally. Weather changes and motions aggravate his pain. He is taking ibuprofen for his pain. He never had physical therapy for his pain. He never had any images short of plain x-ray in urgent care. He never had chiropractic manipulations. He never had any injections. [facility] Medical History NORIS (obstructive sleep apnea) Retrognathia Supraumbilical hernia Hypovitaminosis D Hypertriglyceridemia Ventral hernia Face lesion Trigger finger of right thumb Obese Sleep apnea Surgical History H/O umbilical hernia repair Family History Mother No problems noted. Father No problems noted. 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 Current occupational exposures/hazards: No Cognitive needs: No Hearing needs: No Vision needs: No Review of Systems Const All systems reviewed & are unremarkable except as noted in HPI and below ENT Reports Normal hearing present Neuro Reports Normal hearing present, Denies Abnormal speech present, Denies confusion and Denies Sensory deficit (Neuro) Psych Denies confusion Physical Exam Vital Signs: Last Vital Signs Pulse 93 02/15/25 12:52 Resp 16 02/15/25 12:52 BP 133/81 02/15/25 12:52 Pulse Ox 96 02/15/25 12:52 Oxygen Delivery Method Room Air 02/15/25 12:52 BMI result Body Mass Index 35.4 Const General: no acute distress; No confusion Nutritional Appearance: obese morbidly obese Orientation/consciousness: patient oriented x3 and No confusion Eyes General: appearance normal, both eyes and all related structures Pupils: Equal, round and reactive pupils present EOM: EOMs intact bilaterally Neck Neck: Yes full ROM Chest Chest palpation & inspection: normal inspection of the chest Resp Effort & Inspection: normal respiratory effort, able to speak in complete sentences, normal respiratory pattern, no audible wheezes and no cough Cardio Jugular venous distension: no JVD GI Inspection: Yes normal to inspection Back/Spine/Pelvis Other: There is severe tenderness on palpation in projection of the center of the lumbar spine. No radiation of the pain into extremities. Valsalva maneuver aggravate his pain. Neuro General: patient oriented x3, gait normal and No confusion Cranial nerves: Yes CN's II-XII intact bilaterally, Yes Equal, round and reactive pupils present, Yes Normal hearing present and Yes Ability to bilaterally elevate shoulders present Speech: No Abnormal speech present Gait exam (Neuro): Normal gait present Motor exam (neuro): 5/5 motor strength present throughout Sensory Exam: No Sensory deficit (Neuro) Extrem General: No pedal edema Psych Speech and movement: Normal speech and movement present Affect: normal affect Attitude: cooperative Thought process: Normal thought process present Thought content: Normal thought content present Insight: Good insight present (Psych) Judgement: Good judgement present (Psych) Results Reviewed Results Reviewed: XR LUMBOSACRAL SPINE CLINICAL INFORMATION: M43.10 - Spondylolisthesis, site unspecified COMPARISON: None available. TECHNIQUE: 7 views of the lumbar spine, inclusive of flexion and extension views, were obtained. FINDINGS: 5 lumbar type vertebral bodies. Mild L5-S1 anterolisthesis. Possible bilateral L5 pars defects. Vertebral body heights are maintained. No evidence of acute fracture. Mild-moderate L5-S1 and L1-2 disc space narrowing. No instability on the flexion-extension views identified. Paraspinal soft tissue appears unremarkable. SI joints are symmetric. No abnormal soft tissue calcification. IMPRESSION: No acute findings. Mild L5-S1 anterolisthesis. Possible bilateral L5 pars defects. Lumbar spondylosis. Assessment & Plan Assessment & Plan (1) Spondylolisthesis due to traumatic injury: Code(s): M43.10 - Spondylolisthesis, site unspecified; T14.90XS - Injury, unspecified, sequela Category: Medical (2) Pars defect with spondylolisthesis: Code(s): M43.10 - Spondylolisthesis, site unspecified Category: Medical Plan Although possible bilateral pars defect is demonstrated on the x-ray as above the spine on flexing and bending deemed stable. I will send the patient for physical therapy. I recommend him to perform home exercise program in conjunction with physical therapy. After he will complete physical therapy and home exercise program he will give us a call and schedule an appointment if his pain continues to be severe as it is now. We will offer him diagnostic medial branch block of L3-L4 dorsal ramus L5 medial branches bilaterally. Coding Level of Care Code Est Pt Level 3 (98619) Diagnoses Spondylolisthesis due to traumatic injury M43.10; T14.90XS Pars defect with spondylolisthesis M43.10
== END 2025-02-15 13:11 | disposition home or self-care (01) ==
LOC: HO.PMC 12:46
PROVIDERS: PCP Internal Medicine; Visit Provider Anesthesiology
DX: M43.16 Spondylolisthesis, lumbar region (principal); T14.90XS Injury, unspecified, sequela
CPT/HCPCS: 99213

== ENCOUNTER → 2025-02-15 12:45 | Outpatient (BNVA) | payer OTHER, SELFPAY | PROVIDERS: PCP Internal Medicine; Visit Provider Anesthesiology | DX: Z71.2 Person consulting for explanation of examination or test findings (principal); M43.16 Spondylolisthesis, lumbar region | CPT/HCPCS: 99212 ==